=== PATIENT | female | born 1945 | race Caucasian/White ===

== ENCOUNTER 2016-12-13 15:09 | Inpatient (IN) | payer MEDICARE, OTHER ==
[2016-12-13 16:14] LABS: Hematocrit 41 % (35-47); Hemoglobin 13.8 g/dl (12.0-16.0); Mean Corpuscular HGB Conc 34 g/dl (31-36); Mean Corpuscular Hemoglobin 31 pg (27-31); Mean Corpuscular Volume 93 fL (80-97); Mean Platelet Volume 7 um3 (7.4-10.4); Red Blood Count 4.41 10^6/ul (4.0-5.4); Red Cell Distribution Width 13 % (10.5-15); White Blood Count 7.5 10^3/ul (3.5-10.8)
[2016-12-13 16:24] LABS: Albumin 3.8 g/dL (3.2-5.2); BUN/Creatinine Ratio 34.6 (8-20); Calcium 9.3 mg/dL (8.6-10.3); EGFR African American 89.4 (>60); EGFR Non-African American 69.5 (>60); Globulin 3.3 g/dL (2-4); Potassium 3.7 mmol/L (3.5-5.0); Total Bilirubin 0.5 mg/dL (0.2-1.0); Total Protein 7.1 g/dL (6.4-8.9)
[2016-12-13] MEDS ORDERED: NS 0.9% 1000 ML* 1,000 ML IV ONE (16:57)
--- NOTE | 2016-12-13 16:57 | ED ---
Lisa Pratt Rebecca, scribed for Hedy Lopez MD on 12/13/16 at 1627 . GI/ HPI - HPI Summary HPI Summary: Pt is a 71 y/o F who presents to ED c/o 2 incidences of diarrhea with blood today. At both 12 and 1330 today she went to the bathroom and had loose stools with "lots and lots" of dark red (maroon) blood in the BM. Has not had any recurrent sx. No h/o similar. No abdominal pain. No nausea, vomiting. No lightheadedness, no weakness. No cp, sob. No h/o GI bleed. Sx aggravated by nothing, alleviated by Immodium she took after second BM. . Denies dysuria and back pain. Has not seen blood in her underwear. Last normal BM was yesterday. pt with h/o hemorrhoid. No prior similar episodes. Confirms she felt well this morning prior to onset of sx. Last colonoscopy was 2 years ago, which was negative. Pt does have diverticulosis. No h/o diverticulitis. Reports an increase in Motrin usage recently which she does not always take with food. PMHx external hemorrhoids and diverticulosis with negative PMHx of diverticulitis. Confirms chronic bilateral edema. - History of Current Complaint Chief Complaint: EDGIBleed Time Seen by Provider: 12/13/16 16:16 Stated Complaint: BLOOD IN BOWEL MOVEMENTS Hx Obtained From: Patient Onset/Duration: Started Hours Ago, Resolved Timing: Intermittent - 2 episodes Current Severity: None Pain Intensity: 0 - Negative Associated Signs and Symptoms: Positive: Blood w/Stool - Dark red (maroon), Diarrhea. Negative: Nausea, Abdominal Pain, Chest Pain Aggravating Factor(s): Nothing Alleviating Factor(s): Medication - Immodium - Additional Pertinent History Primary Care Physician: [id number] - Allergy/Home Medications Allergies/Adverse Reactions: Allergies Allergy/AdvReac Type Severity Reaction Status Date / Time Buspirone [From Buspar] AdvReac Intermediate possibly Verified 12/13/16 15:13 heart racing Naproxen [From Aleve] AdvReac Intermediate possibly Verified 12/13/16 15:13 nosebleeds Home Medications: Home Medications Ibuprofen-Diphenhydramine Citr [Advil Pm] 2 tab PO BEDTIME 12/13/16 [History Confirmed 12/13/16] PMH/Surg Hx/FS Hx/Imm Hx Previously Healthy: Yes Endocrine/Hematology History: Denies: Hx Anticoagulant Therapy, Hx Diabetes Cardiovascular History: Reports: Hx Hypercholesterolemia, Hx Hypertension, Other Cardiovascular Problems/Disorders - lymphedema Denies: Hx Pacemaker/ICD Respiratory History: Reports: Hx Asthma - hX OF, NO Sx IN MANY YEARS, Hx Sleep Apnea - NO CPAP GI History: Reports: Hx Diverticulosis, Hx Gastroesophageal Reflux Disease - OCCASSIONAL Sx, HAS XANAX Rx History: Denies: Hx Dialysis, Hx Renal Disease Musculoskeletal History: Reports: Hx Arthritis - LEFT KNEE, FEET, BACK Sensory History: Reports: Hx Cataracts, Hx Contacts or Glasses Denies: Hx Hearing Aid Opthamlomology History: Reports: Hx Cataracts, Hx Contacts or Glasses Psychiatric History: Reports: Hx Anxiety - MED PRN, Hx Panic Disorder - TAKES XANAX FOR ANXIETY - Cancer History Cancer Type, Location and Year: emdometrial Hx Chemotherapy: No Hx Radiation Therapy: Yes - ENDOMETRIAL 2012 - Surgical History Surgery Procedure, Year, and Place: HYSTERECTOMY-02/2012; LYMPH NODE DISECTION / lymphadenectomy 05/2012;RIGHT CATARACT-2004. euflexa injections in left knee. D&C X4 Hx Anesthesia Reactions: Yes - 05/2012 CHILLS/N/V Infectious Disease History: No Infectious Disease History: Denies: Traveled Outside the [place] in Last 30 Days - Family History Known Family History: Positive: Other - Lung CA, Breast CA - Social History Occupation: Retired Lives: Alone Alcohol Use: Weekly Alcohol Amount: 2-1 DRINKS/MONTH Substance Use Type: Reports: None Smoking Status (MU): Never Smoked Tobacco Have You Smoked in the Last Year: No Review of Systems Constitutional: Negative Eyes: Negative ENT: Negative Negative: Chest Pain Negative: Shortness Of Breath Positive: Diarrhea - Loose stools. Negative: Abdominal Pain, Nausea Positive: other - 2 BM with blood. Negative: dysuria Positive: Other - Denies back pain Skin: Negative Neurological: Negative Psychological: Normal All Other Systems Reviewed And Are Negative: Yes Physical Exam Triage Information Reviewed: Yes Vital Signs On Initial Exam: Initial Vitals Temp Pulse Resp BP Pulse Ox 98.1 F 112 20 180/99 95 12/13/16 15:14 12/13/16 15:14 12/13/16 15:14 12/13/16 15:14 12/13/16 15:14 Vital Signs Reviewed: Yes Appearance: Positive: Well-Appearing Skin: Positive: Warm, Skin Color Reflects Adequate Perfusion, Dry Eyes: Positive: Normal, EOMI, TAMMI ENT: Positive: Hearing grossly normal, Pharynx normal, TMs normal Neck: Positive: Supple, Nontender, No Lymphadenopathy Respiratory/Lung Sounds: Positive: Clear to Auscultation, Breath Sounds Present , Decreased Breath Sounds Cardiovascular: Positive: Normal, RRR. Negative: Murmur Abdomen Description: Positive: Nontender, No Organomegaly, Soft. Negative: Distended, Guarding Bowel Sounds: Positive: Present Musculoskeletal: Positive: Normal, Strength/ROM Intact Neurological: Positive: Normal, Sensory/Motor Intact, Alert, Oriented to Person Place, Time Psychiatric: Positive: Normal - Manjeet Coma Scale Best Eye Response: 4 - Spontaneous Best Motor Response: 6 - Obeys Commands Best Verbal Response: 5 - Oriented Coma Scale Total: 15 Diagnostics - Vital Signs Vital Signs Temp Pulse Resp BP Pulse Ox 12/13/16 15:14 98.1 F 112 20 180/99 95 - Laboratory Lab Results: Lab Results 12/13/16 12/13/16 12/13/16 Range/Units 15:55 15:55 15:55 WBC 7.5 (3.5-10.8) 10^3/ul RBC 4.41 (4.0-5.4) 10^6/ul Hgb 13.8 (12.0-16.0) g/dl Hct 41 (35-47) % MCV 93 (80-97) fL MCH 31 (27-31) pg MCHC 34 (31-36) g/dl RDW 13 (10.5-15) % Plt Count 215 (150-450) 10^3/ul MPV 7 L (7.4-10.4) um3 Neut % (Auto) 74.0 (38-83) % Lymph % (Auto) 19.0 L (25-47) % Harper % (Auto) 6.2 (1-9) % Eos % (Auto) 0.3 (0-6) % Baso % (Auto) 0.5 (0-2) % Absolute Neuts (auto) 5.6 (1.5-7.7) 10^3/ul Absolute Lymphs (auto) 1.4 (1.0-4.8) 10^3/ul Absolute Monos (auto) 0.5 (0-0.8) 10^3/ul Absolute Eos (auto) 0 (0-0.6) 10^3/ul Absolute Basos (auto) 0 (0-0.2) 10^3/ul Absolute Nucleated RBC 0 10^3/ul Nucleated RBC % 0 INR (Anticoag Therapy) 0.86 L (0.89-1.11) Sodium 137 (133-145) mmol/L Potassium 3.7 (3.5-5.0) mmol/L Chloride 105 (101-111) mmol/L Carbon Dioxide 26 (22-32) mmol/L Anion Gap 6 (2-11) mmol/L BUN 28 H (6-24) mg/dL Creatinine 0.81 (0.51-0.95) mg/dL Est GFR ( Amer) 89.4 (>60) Est GFR (Non-Af Amer) 69.5 (>60) BUN/Creatinine Ratio 34.6 H (8-20) Glucose 121 H (70-100) mg/dL Calcium 9.3 (8.6-10.3) mg/dL Magnesium 2.0 (1.9-2.7) mg/dL Total Bilirubin 0.50 (0.2-1.0) mg/dL AST 17 (13-39) U/L ALT 13 (7-52) U/L Alkaline Phosphatase 61 (34-104) U/L Total Creatine Kinase 57 (10-223) U/L Total Protein 7.1 (6.4-8.9) g/dL Albumin 3.8 (3.2-5.2) g/dL Globulin 3.3 (2-4) g/dL Albumin/Globulin Ratio 1.2 (1-3) Result Diagrams: 12/13/16 15:55 12/13/16 15:55 Lab Statement: Any lab studies that have been ordered have been reviewed, and results considered in the medical decision making process. Re-Evaluation - Re-Evaluation First Eval Re-Evaluation Time: 17:30 Change: Unchanged Comment: Performed rectla exam, revealing bright red blood. spoke with Dr. Alexis (covering Dr. Fine) - request hospitalist admit and will see pt tomorrow. Spoke wt Dr. Burks - agreement with plan. Will give 80mg protonix GIGU Course/Dx - Course Assessment/Plan: Patient's medications reviewed this visit. Pt presents with 2 episode of large BM reported to be dark and bloody. No abd pain. No n.v. No other complaints. Concern for GI bleed. Will place 2 IV. labs. tele. anticipate admission. Pt in agreement with plan - Diagnoses Provider Diagnoses: GI bleed - Physician Notifications Discussed Care Of Patient With: Thierry Alexis Time Discussed With Above Provider: 17:31 Instructed by Provider To: Other - Requests that the hospitalist admit the pt. Discussed care of pt with Dr. Elizabeth Burks at 1733 who accepts pt for admission. Discharge - Discharge Plan Condition: Stable Disposition: ADMITTED TO [facility] documentation as recorded by the Lisa jones Rebecca accurately reflects the service I personally performed and the decisions made by John rivas Laura, MD.
[2016-12-13] MEDS ORDERED: Pantoprazole IV* 80 MG in NS 0.9% 250 ML* 250 ML IVPB ONE (17:30)
[2016-12-13] MEDS ORDERED: Acetaminophen TAB* 325 MG PO PRN (18:04)
[2016-12-13] MEDS ORDERED: Ondansetron INJ* 2 MG/ML VIAL IV PRN (18:04)
[2016-12-13] MEDS ORDERED: Famotidine TAB* 20 MG PO PRN (18:08)
[2016-12-13] MEDS ORDERED: Artificial Tears* 15 ML BTL BOTH EYES PRN (18:08)
[2016-12-13] MEDS ORDERED: ALPRAZolam TAB* 0.5 MG PO PRN (18:08)
[2016-12-13] MEDS ORDERED: NS 0.9% 1000 ML* 1,000 ML IV SCH (18:15)
[2016-12-13 20:42] LABS: Hematocrit 38 % (35-47); Hemoglobin 12.7 g/dl (12.0-16.0)
[2016-12-13] MEDS: ALPRAZolam TAB* 0.5 MG PO PRN (22:19)
[2016-12-13 22:21] LABS: Urine Bacteria Absent (Absent); Urine Bilirubin Negative (Negative); Urine Glucose Negative (Negative); Urine Nitrite Negative (Negative)
[2016-12-14 02:17] LABS: Hematocrit 37 % (35-47); Hemoglobin 12.2 g/dl (12.0-16.0)
--- NOTE | 2016-12-14 03:25 | HP ---
CC: Marguerite Fine MD; Dr. Wesley * HISTORY AND PHYSICAL: DATE OF ADMISSION: 12/13/16 PRIMARY CARE PROVIDER: Marguerite Fine MD. ATTENDING PHYSICIAN WHILE IN THE HOSPITAL: Elizabeth Burks MD * (report dictated by Bg Nguyen NP) CHIEF COMPLAINT: Bright red blood per rectum. HISTORY OF PRESENT ILLNESS: Ms. Lau is a 71-year-old female patient. She has a history of chronic lymphedema, osteoarthritis, endometrial cancer, asthma , which is no longer an issue, hypertension, diverticulosis, CORRY and history of anxiety, coming into the ER today stating that she went to [employer] today with one of her nephews. She was bringing him back to the airport. She was at [employer], she had to use the restroom. She went into the bathroom and noticed that she had a large bloody bowel movement that looked maroon in nature and also filled the toilet bowl up with blood. She brought the kids to the airport. She went home. She had another episode around 1:30. [address]. Rincon who was on-call for the practice and she recommended that the patient come into the ER. There was no complaint of chest pain. No complaint of abdominal pain. No nausea, vomiting. She denied any dysuria. There was no frequency. She says that she felt a little lightheaded after the second bowel movement, but there was no shortness of breath. No fainting and no recent fevers or abdominal discomfort and she has never had this issue before. She does state that she has been taking ibuprofen on a daily basis for the last 6 months as well, but denies any again epigastric pain and denies having any tarry stools or coffee-ground emesis. She came into the ER, was evaluated. She was heme-positive. There was concern for a possible GI bleed, lower and the hospitalist service was asked to evaluate for admission. PAST MEDICAL HISTORY: Significant for : 1. Lymphedema. 2. Osteoarthritis. 3. Endometrial cancer. 4. Asthma. 5. Hypertension. 6. Diverticulosis. 7. CORRY. 8. Anxiety. PAST SURGICAL HISTORY: 1. The patient has had a hysterectomy. 2. D and C x4. 3. Cataracts. 4. Tonsillectomy. MEDICATIONS: The home medications according to the list that she provided us include: 1. Advil PM 2 tablets at bedtime. 2. Singulair 10 mg p.o. daily. 3. Zantac 150 mg p.o. daily as needed. 4. Multivitamin 1 tablet daily. 5. Indapamide 1 tablet p.o. daily. 6. Glucosamine and chondroitin 1 tablet p.o. daily. 7. Lipitor 20 mg daily. 8. Artificial Tears 1 spray both eyes daily as needed. 9. Tylenol Arthritis 2 tablets p.o. b.i.d. as needed. 10. Xanax 1 tablet p.o. b.i.d. as needed. ALLERGIES TO MEDICATIONS: Include NAPROXEN and BUSPAR. FAMILY HISTORY: Her mother had peripheral vascular disease and breast cancer. Father had an OR and was also diabetic. SOCIAL HISTORY: She does not smoke. Rarely drinks alcohol. Surrogate decision maker is her brother and her nephew. REVIEW OF SYSTEMS: There is no documented fever. She denied having any significant weight change. There was no double vision. She denies having any ear discharge. There was no rhinorrhea, no sore throat, no thyroid enlargement. She denied having any chest pain. There was no orthopnea. No nocturnal dyspnea. There was no abdominal pain. There was bright red blood per rectum. No dysuria. No frequency. No seizure. No loss of consciousness. No pruritus. No skin ulcerations. Review of 14 systems completed, all others negative. PHYSICAL EXAMINATION GENERAL: At this time, Ms. Lau is a 71-year-old female patient. She appears to be well nourished and well developed. She does not appear to be in any acute distress. VITAL SIGNS: Blood pressure 132/57, pulse 91, respirations 18, O2 sat 95% on room air, and temperature 98. HEENT: Head is atraumatic and normocephalic. Eyes: EOMs are intact. Sclerae anicteric and not pale. Throat: Oral mucosa appears to be moist, no oropharyngeal erythema. NECK: Supple. LUNGS: Clear to auscultation bilaterally. No wheezes, rales, or rhonchi. HEART: Sounds S1 and S2. Regular rate and rhythm. No murmurs, rubs, or gallops. ABDOMEN: Soft, it was flat and nontender. Bowel sounds present. RECTAL EXAM: Did reveal bright red blood. EXTREMITIES: Pulses were 2+ throughout. She did have lymphedema bilaterally. She is moving all 4 extremities with 5/5 strength. NEUROLOGIC: She is awake, alert and oriented x3. No gross focal deficits. SKIN: Intact. DIAGNOSTIC STUDIES/LAB DATA: Labs revealed a WBC of 7.5, RBC of 4.14, hemoglobin of 13.8, hematocrit of 41, platelet count of 215,000. The INR was 0.86. Sodium 137, potassium 3.7, chloride of 105, bicarb 26, BUN of 28, creatinine 0.81, glucose 121. Calcium of 9.3, mag was 2.0, total bili 0.5. AST 17, ALT 13, alk phos 61, albumin 3.8. The patient did have a Hemoccult which again was noted to be positive. Old medical records were reviewed. ASSESSMENT AND PLAN: Ms. Lau is a 71-year-old female patient coming into the ER today with complaints of bright red blood per rectum. She will be admitted under observation status for: 1. Lower GI bleed. At this point, again I suspect this is probably a diverticular bleed. I did touch base with Dr. Wesley. The plan at this point is to hold off on PPI. I will put her on clear liquid diet, serial H and Hs. If her H and H remains stable, she probably could be discharged in 24 hours. We will hydrate her, which has been done here in the ED. We will check the serial H and H's and we will again transfuse as needed. Two peripheral IVs have been maintained. We will continue to monitor. 2. Lymphedema. She can follow with her primary. 3. Osteoarthritis. Continue with p.r.n. Tylenol. I have instructed her to avoid NSAIDs. 4. Endometrial cancer. Again follow up with primary. Not an active issue. 5. Asthma, not an active issue. 6. Hypertension. In the setting of this bleeding, I am going to hold off on the mild diuretic that she is taking. We can reinstate that when she is out of the acute illness. 7. Anxiety. P.r.n. Xanax will be continued. 8. Obstructive sleep apnea. Follow up with primary. 9. DVT prophylaxis. I will place her on SCDs. 9. Code status: She wishes to be a full code. 10. Fluids, electrolytes, and nutrition: Clear liquid diet. TIME SPENT: Time spent on the admission was approximately 60 minutes, greater than half the time was spent [id number] with the patient obtaining my history and physical, other half time was spent going over the plan of care with the patient and implementing plan of care. I did discuss the plan of care with my attending, Dr. Burks, she is in agreement. BG NGUYEN, TOSHIA [id number]/CPS #: [id number] MTDD
[2016-12-14] MEDS: Atorvastatin* 20 MG TAB PO SCH (07:57)
[2016-12-14 09:12] LABS: Hematocrit 40 % (35-47); Mean Corpuscular HGB Conc 33 g/dl (31-36); Mean Corpuscular Hemoglobin 31 pg (27-31); Mean Corpuscular Volume 94 fL (80-97); Mean Platelet Volume 7 um3 (7.4-10.4); Red Blood Count 4.22 10^6/ul (4.0-5.4); Red Cell Distribution Width 14 % (10.5-15); White Blood Count 6.3 10^3/ul (3.5-10.8)
[2016-12-14 09:26] LABS: BUN/Creatinine Ratio 21.4 (8-20); Calcium 9.1 mg/dL (8.6-10.3); EGFR African American 85.7 (>60); EGFR Non-African American 66.6 (>60); Potassium 3.4 mmol/L (3.5-5.0)
--- NOTE | 2016-12-14 09:39 | PN ---
Subjective - Subjective Reason for Note: Progress Note History: I reviewed the presentation with Abby Lau and with the H and P provided Bg Nguyen NP. She had x 2 episodes of maroon blood in her stool and none since. This was not associated with any nausea, vomiting, syncope, diaphoresis , abdominal pain, diarrhea or recent change in BM. Her father had colon cancer and she has had frequent colonoscopies - most recent 2 years ago. This morning she is feeling well. She has no anorexia, nausea, vomiting, abdo pain. She has had no bowel movements. Active Problems: Active Problems Blood in stool (Acute) K92.1 Asthma (Chronic) J45.909 Family history of colon cancer (Chronic) Z80.0 Hypertension (Chronic) I10 Obesity, Class III, BMI 40-49.9 (morbid obesity) (Chronic) E66.01 Obstructive sleep apnea (Chronic) G47.33 Osteoarthritis (Chronic) M19.90 Current Medications: Current Medications Acetaminophen (Tylenol Tab*) 650 mg PO Q6H PRN PRN Reason: FEVER/PAIN Alprazolam (Xanax Tab*) 0.5 mg PO BID PRN PRN Reason: AGITATION/ANXIETY Last Admin: 12/13/16 22:19 Dose: 0.5 mg Atorvastatin Calcium (Lipitor*) 20 mg PO DAILY [facility] Last Admin: 12/14/16 07:57 Dose: 20 mg Famotidine (Pepcid Tab*) 20 mg PO DAILY PRN; Protocol PRN Reason: INDIGESTION Sodium Chloride (Ns 0.9% 1000 Ml*) 1,000 mls @ 100 mls/hr IV PER RATE [facility] Last Admin: 12/13/16 19:53 Dose: 100 mls/hr Ondansetron HCl (Zofran Inj*) 4 mg IV Q6H PRN PRN Reason: NAUSEA Polyvinyl Alcohol (Polyvinyl Alcohol 1.4% Opth*) 1 drop BOTH EYES DAILY PRN PRN Reason: DRY EYE Home Medications: Home Medications Medication Instructions Recorded Confirmed Type Artificial Tears 1 spray BOTH EYES DAILY PRN 02/17/12 12/13/16 History Indapamide 1 tab PO DAILY 02/17/12 12/13/16 History Multi-Vitamin 1 tab PO DAILY 02/17/12 12/13/16 History Singulair 10 mg PO DAILY 02/17/12 12/13/16 History Xanax 1 tab PO BID PRN 02/17/12 12/13/16 History Acetaminophen [Tylenol Arthritis 2 tab PO BID PRN 03/02/13 12/13/16 History Pain] Obirvheqfsp-Eprknhumasm-Dqwald 1 pow PO DAILY 03/02/13 12/13/16 History [Glucosamine & Chrondroiti] Ranitidine HCl [Zantac 150 Maximum 150 mg PO DAILY PRN 03/02/13 12/13/16 History Streng] Atorvastatin* [Lipitor*] 20 mg PO DAILY 10/18/15 12/13/16 History Ibuprofen-Diphenhydramine Citr 2 tab PO BEDTIME 12/13/16 12/13/16 History [Advil Pm] Allergies: Allergies Allergy/AdvReac Type Severity Reaction Status Date / Time Buspirone [From Buspar] AdvReac Intermediate possibly Verified 12/13/16 15:13 heart racing Naproxen [From Aleve] AdvReac Intermediate possibly Verified 12/13/16 15:13 nosebleeds Objective - Vital Signs Vital Signs: Vital Signs 12/13/16 12/13/16 12/13/16 19:23 20:08 22:19 Temperature 97.6 F 97.6 F Pulse Rate 94 93 Respiratory 16 16 18 Rate Blood Pressure 148/77 148/77 (mmHg) O2 Sat by Pulse 97 97 Oximetry 12/13/16 12/14/16 12/14/16 23:28 00:14 03:57 Temperature 97.7 F 97.7 F Pulse Rate 69 67 Respiratory 16 20 16 Rate Blood Pressure 139/74 131/63 (mmHg) O2 Sat by Pulse 100 97 Oximetry 12/14/16 12/14/16 07:42 08:11 Temperature 97.6 F Pulse Rate 81 Respiratory 16 Rate Blood Pressure 150/80 (mmHg) O2 Sat by Pulse 97 98 Oximetry - Intake and Output Intake and Output: Intake & Output 12/11/16 12/12/16 12/13/16 12/14/16 11:59 11:59 11:59 11:59 Intake Total 2419 Output Total 450 Balance 1969 Weight 251 lb 4.8 oz Intake: IV Fluids 2019 Oral 400 Output: Urine 450 Other: Estimated Void Large # Bowel Movements 0 # Voids 1 Intake and Output Start: 12/13/16 18: 41 Freq: DAILY@0600,1400,2200 Status: Active Document 12/13/16 22:00 [id number] (Rec: 12/13/16 23:01 [id number]) Document 12/14/16 05:37 [id number] (Rec: 12/14/16 05:37 [id number]) - Physical Exam General Physical Exam Comment: Warm and well perfused, in no distress. Hemodynamically stable General: No Cyanosis, No Anemia, No Jaundice, No Clubbing Skin: Normal: Rash Lungs and Chest: Yes: Chest Expansion Full, Chest Expansion Symetrica, Percussion Note Resonant, Vessicular Breath Sounds. No: Crackles, Wheezes Heart Rate and Rhythm: Regular JVP: Not Elevated Additional Cardiovascular: Yes: Normal Heart Sounds, Pedal Edema. No: Heart Murmur Abdominal Exam: Yes: Soft, Hepatomegaly - 2 finger breath, Bowel Sounds Present. No: Distention, Rigidity, Abdominal Mass, Splenomegaly, Abdominal Tenderness, Guarding, Rebound Tenderness, Kidneys Palpable - Extremities Cranial Nerves II-XII Intact: Yes Limbs: Normal Power, Normal Tone - Neuro Orientation: A/O x3 Psychiatric: Normal Speech: Normal Results - Results Lab Results: Laboratory Results - last 24 hr 12/13/16 12/13/16 12/14/16 20:37 21:50 02:14 WBC RBC Hgb 12.7 12.2 Hct 38 37 MCV MCH MCHC RDW Plt Count MPV Neut % (Auto) Lymph % (Auto) Upson % (Auto) Eos % (Auto) Baso % (Auto) Absolute Neuts (auto) Absolute Lymphs (auto) Absolute Monos (auto) Absolute Eos (auto) Absolute Basos (auto) Absolute Nucleated RBC Nucleated RBC % INR (Anticoag Therapy) Sodium Potassium Chloride Carbon Dioxide Anion Gap BUN Creatinine Est GFR ( Amer) Est GFR (Non-Af Amer) BUN/Creatinine Ratio Glucose Calcium Urine Color Yellow Urine Appearance Clear Urine pH 6.0 Ur Specific Kenly 1.009 L Urine Protein Negative Urine Ketones Negative Urine Blood Negative Urine Nitrate Negative Urine Bilirubin Negative Urine Urobilinogen Negative Ur Leukocyte Esterase Trace H Urine WBC (Auto) Trace(0-5/hpf) Urine RBC (Auto) Trace(0-2/hpf) Ur Squamous Epith Cells Present H Urine Bacteria Absent Urine Glucose Negative Urine Ascorbic Acid * H 07/12/14/16 12/14/16 09:00 09:00 09:00 WBC 6.3 RBC 4.22 Hgb 13.0 Hct 40 MCV 94 MCH 31 MCHC 33 RDW 14 Plt Count 199 MPV 7 L Neut % (Auto) 59.5 Lymph % (Auto) 31.4 Upson % (Auto) 6.7 Eos % (Auto) 1.8 Baso % (Auto) 0.6 Absolute Neuts (auto) 3.8 Absolute Lymphs (auto) 2.0 Absolute Monos (auto) 0.4 Absolute Eos (auto) 0.1 Absolute Basos (auto) 0 Absolute Nucleated RBC 0.01 Nucleated RBC % 0.1 INR (Anticoag Therapy) 0.90 Sodium 138 Potassium 3.4 L Chloride 107 Carbon Dioxide 28 Anion Gap 3 BUN 18 Creatinine 0.84 Est GFR ( Amer) 85.7 Est GFR (Non-Af Amer) 66.6 BUN/Creatinine Ratio 21.4 H Glucose 113 H Calcium 9.1 Urine Color Urine Appearance Urine pH Ur Specific Kenly Urine Protein Urine Ketones Urine Blood Urine Nitrate Urine Bilirubin Urine Urobilinogen Ur Leukocyte Esterase Urine WBC (Auto) Urine RBC (Auto) Ur Squamous Epith Cells Urine Bacteria Urine Glucose Urine Ascorbic Acid Assessment - Problem List Assessment: Patient Problems Blood in stool (Acute) Asthma (Chronic) Family history of colon cancer (Chronic) Hypertension (Chronic) Obesity, Class III, BMI 40-49.9 (morbid obesity) (Chronic) Obstructive sleep apnea (Chronic) Osteoarthritis (Chronic) Lymphedema (Chronic) Plan: Blood in stool (Acute) She has positive fecal occult blood. Her H and H is not much altered. I have discussed her case with Dr. Wesley - he is seeing her in consultation this morning. He will decide if she requires a colonoscopy. Otherwise, we are likely to keep her here until tomorrow. She has hypokalemia Asthma (Chronic) secondary diagnosis Family history of colon cancer (Chronic) She is up to date with screening colonoscopies Hypertension (Chronic) mild hypertension this morning Obesity, Class III, BMI 40-49.9 (morbid obesity) (Chronic) secondary diagnosis Obstructive sleep apnea (Chronic) secondary diagnosis Osteoarthritis (Chronic) She takes ibuprofen. She had epistaxis with naproxen. She wonders if this likely exacerbated her current bleed Lymphedema (Chronic) not exacerbated I discussed the above plan with the patient. She is willing to wait another 24 hours before discharge.
[2016-12-14] MEDS ORDERED: CMCS - Melatonin (NF) 3 MG TAB PO PRN (16:40)
[2016-12-14] MEDS: Potassium Chlor TAB* 20 MEQ TAB.ER PO SCH (22:16)
[2016-12-14] MEDS: ALPRAZolam TAB* 0.5 MG PO PRN (22:16)
--- NOTE | 2016-12-14 22:32 | CONS ---
CC: Dr. Marguerite Fine * CONSULTATION REPORT: DATE OF CONSULT: 12/14/16 REQUESTING PHYSICIAN: Bg Nguyen NP PRIMARY CARE PHYSICIAN: Dr. Marguerite Fine INDICATION: Diverticular bleeding. NARRATIVE: Ms. Lau is a very pleasant 71-year-old female well known to myself. I performed a colonoscopy on her approximately 2 years ago. She has severe diverticulosis. That was the third colonoscopy I performed on her. All of her colonoscopies have been polyp free. The patient states that she was feeling well up until mid afternoon yesterday. She felt the urge to have diarrhea, went to the bathroom and had a maroon bloody bowel movement. She felt slightly lightheaded. She then had another bowel movement a few hours later. She came to the emergency room at that point. She was admitted to the hospital for a suspected lower gastrointestinal bleed. Since being in the hospital, she has not had any further bowel movements. She does take nonsteroidals on a regular basis for osteoarthritis, she takes Advil p.m. However, denies any vomiting, nausea, fevers, chills, hematemesis, and feels well at this point. PAST MEDICAL HISTORY: Significant for lymphedema, osteoarthritis, endometrial cancer, hypertension, sleep apnea, and diverticulosis. PAST SURGICAL HISTORY: Includes hysterectomy, D and C x4, cataracts, and tonsillectomy. MEDICATIONS UPON ADMISSION: Include: 1. Singulair. 2. Zantac. 3. Glucosamine. 4. Chondroitin sulfate. 5. Lipitor. 6. Artificial tears. 7. Xanax. ALLERGIES TO MEDICINES: Include NAPROXEN and BUSPAR. FAMILY HISTORY: Mom with peripheral vascular disease, breast cancer, coronary artery disease, diabetes. SOCIAL HISTORY: Denies any tobacco. Rare alcohol. REVIEW OF SYSTEMS: Twelve systems were reviewed, other than that mentioned in the HPI were unremarkable. PHYSICAL EXAM: Vital Signs: Temperature is 97.6, blood pressure is 150/80, pulse is 81. General: Well-appearing female, lying flat in bed. Alert, oriented, pleasant, and fluent. HEENT: Mucous membranes are moist without lesions, ulcers, or exudate. Neck: Supple. Trachea is midline. Head is normocephalic and atraumatic. Sclerae anicteric. Conjunctivae are not pale. Heart: Regular rate and rhythm. No murmurs, rubs, or gallops. Lungs: Clear to auscultation. Abdomen: Positive bowel sounds. Obese, soft, nontender, and nondistended. No hepatosplenomegaly, masses, rebound or guarding. Skin: Warm and dry. Extremities: Severe lower extremity edema bilaterally. DIAGNOSTIC STUDIES/LAB DATA: Of note, white count is 6.3, hemoglobin is 13 up from 12.2. INR is 0.9. Platelets of 199. BUN is 18, creatinine is 0.84. ASSESSMENT AND PLAN: This is a pleasant 71-year-old female with known moderate- to- severe diverticulosis, who presents with painless rectal bleeding. Her hemoglobin is stable. Likely she experienced a diverticular bleed. She seems to be doing well at this point. She is not having bowel movement. Hopefully the bleeding has stopped. We discussed the mechanism behind diverticular bleeding. I would recommend we continue to follow her very closely, repeat her hemoglobins, and I do not believe she needs a colonoscopy at this time. We will follow along closely. [id number]/[facility] #: [id number] [facility]
[2016-12-15 07:26] LABS: Hematocrit 36 % (35-47); Hemoglobin 12.5 g/dl (12.0-16.0); Mean Corpuscular HGB Conc 35 g/dl (31-36); Mean Corpuscular Hemoglobin 32 pg (27-31); Mean Corpuscular Volume 93 fL (80-97); Mean Platelet Volume 7 um3 (7.4-10.4); Red Blood Count 3.87 10^6/ul (4.0-5.4); Red Cell Distribution Width 13 % (10.5-15); White Blood Count 7.7 10^3/ul (3.5-10.8)
[2016-12-15 07:44] LABS: BUN/Creatinine Ratio 21.7 (8-20); Calcium 8.9 mg/dL (8.6-10.3); EGFR African American 77.2 (>60); Potassium 3.4 mmol/L (3.5-5.0)
[2016-12-15] MEDS: Potassium Chlor TAB* 20 MEQ TAB.ER PO SCH (07:56)
[2016-12-15] MEDS: Atorvastatin* 20 MG TAB PO SCH (07:57)
[2016-12-15 08:14] VITALS: BP 135/65
--- NOTE | 2016-12-16 08:56 | DS ---
DISCHARGE SUMMARY: DATE OF ADMISSION: 12/13/16 DATE OF DISCHARGE: 12/15/16 DISCHARGE DIAGNOSES: 1. Gastrointestinal bleeding likely diverticular bleed. 2. Asthma. 3. History of anxiety. 4. Hyperlipidemia. 5. Chronic lymphedema. 6. History of hypertension. 7. History of diverticulosis. 8. Osteoarthritis. 9. History of endometrial cancer. 10. Obstructive sleep apnea. HISTORY: Abby Lau is a 71-year-old woman admitted with lower intestinal bleeding. Please see the dictated admission note for details of the present illness, past medical history, family history, social and personal history, review of systems and physical examination. LABORATORY DATA: CBC on admission: WBC 7.5, H and H 13.8/41, MCV 93, PLT 215K. Subsequent H and H went down to 37 on 12/14/16, then up to 40 later on , and then was 36 on 12/15/16. Coag's, INR 0.86 on 12/13/16, 0.9 on . Chemistries on admission: Sodium 137, potassium 3.7, chloride 105, CO2 26, BUN and creatinine 28/0.81, glucose 121, rest of the comprehensive metabolic panel was within normal limits. Potassium was 3.4 on 12/14/16, 3.4 on . Urinalysis: Yellow, clear, specific gravity 1.009, dip stick is positive for esterase trace. Micro was negative. Consultation GI, on 12/14/16, Dr. Wesley , probably the patient had known moderate- to-severe diverticulosis. He felt she likely experienced a diverticular bleed and was doing well when he saw her on 12/14/16. He did not believe that she needed a colonoscopy at this time. HOSPITAL COURSE: Patient was admitted. She was placed initially on a clear liquid diet, advanced the following day. Her H and H was followed. She was hydrated. Her potassium was repleted. Her diuretic was held. At the time, she had no further bleeding or bowel movements during her hospitalization. She was a full code. She was placed with SCD's for DVT prophylaxis. At the time of discharge she was feeling fine. She denied pain. She had not had a bowel movement since admission. Her vital signs were stable, blood pressure 135/65, pulse 72, respirations 19, temperature 98.3, O2 sat was 95%. Chest was clear. Heart was regular. Abdomen was soft and nontender. Extremities showed her usual lymphedema, no change. Labs were as noted above. Her potassium was noted to be slightly low. This will be followed as an outpatient. She will go back to her usual diet and I suspect that she will bring up her potassium. I will hold off on giving her any diuretic for a couple of days. We will restart it on 12/17/16 which is Thursday. At the time of discharge her diet is regular. Her activity is as usual. MEDICATIONS: 1. Singulair 10 mg daily. 2. Indapamide 2.5 mg daily to start on Thursday12/17/16. 3. Lipitor 20 mg daily. 4. Alprazolam 0.25 mg twice a day as needed for anxiety. 5. Glucosamine sulfate 500 mg 3 times a day. 6. ProAir 2 puffs every 4 hours as needed for asthma. 7. B-Complex once a day. 8. Zantac 150 mg as needed. 9. Multivitamins once daily. 10. Artificial tears as needed. I will see the patient back in one week at which time she should have a CBC, BMP. She was told to take no ibuprofen, Advil, Motrin, Motrin PM, Aleve, naproxen or aspirin. [id number]/[facility] #: [id number] [facility] [place] [facility]
== END 2016-12-15 11:05 | disposition home or self-care (01) | DRG 378 ==
LOC: ED 15:09 → MED 17:34 → OBSVTOIN 12-14 10:00
PROVIDERS: ADMIT Internal Medicine; ATTEND Internal Medicine Geriatric Medicine
DX: K57.31 Diverticulosis of large intestine without perforation or abscess with bleeding (principal); Z68.41 Body mass index [BMI] 40.0-44.9, adult; I10 Essential (primary) hypertension; F41.9 Anxiety disorder, unspecified; E78.5 Hyperlipidemia, unspecified; I89.0 Lymphedema, not elsewhere classified; M19.90 Unspecified osteoarthritis, unspecified site; E66.01 Morbid (severe) obesity due to excess calories; G47.33 Obstructive sleep apnea (adult) (pediatric); Z85.89 Personal history of malignant neoplasm of other organs and systems; Z79.1 Long term (current) use of non-steroidal anti-inflammatories (NSAID); Z79.899 Other long term (current) drug therapy; Z88.8 Allergy status to other drugs, medicaments and biological substances; Z80.3 Family history of malignant neoplasm of breast; Z83.2 Family history of diseases of the blood and blood-forming organs and certain disorders involving the immune mechanism; Z83.3 Family history of diabetes mellitus; Z82.49 Family history of ischemic heart disease and other diseases of the circulatory system
CPT/HCPCS: 36415; 80048; 80053; 81003; 81015; 82272; 82550; 83735; 85014; 85018; 85025; 85610; 86850; 86900; 86901; 87086; 94760; A9270-GY; G0378

== ENCOUNTER 2018-09-07 09:10 | Day surgery (SDC) | payer MEDICARE, OTHER ==
[~2018-09-07 09:10] MED LIST: Buffered Lidocaine 1% SYRIN* 1 ML/SYRINGE INTRADERM ONE
[2018-09-07] MEDS ORDERED: Propofol* 10 MG/ML 20 ML BTL ONE (10:01)
[2018-09-07] MEDS ORDERED: Lidocaine 2% PF * 5 ML VIAL ONE (10:01)
[2018-09-07] MEDS ORDERED: fentaNYL* 50 MCG/ML 2 ML VIAL (100 MCG VIAL) ONE (10:10)
[2018-09-07 10:30] VITALS: BP 149/81
[2018-09-07] MEDS ORDERED: Cyclopentolate 1% OPTH.SOL* 2 ML BTL ONE (15:25)
[2018-09-07] MEDS ORDERED: Phenylephrine OPHTH SOL 2.5%* 2 ML ONE (15:25)
[2018-09-07] MEDS ORDERED: Lidocaine 1%* 5 ML VIAL ONE (15:25)
[2018-09-07] MEDS ORDERED: Neomycin/Polymy/Dex OPHTH.OIN* 3.5 GM ONE (15:25)
[2018-09-07] MEDS ORDERED: Ketorolac 0.5% OPHTH (NF) 0.5 % 5 ML BTL ONE (15:25)
[2018-09-07] MEDS ORDERED: Tropicamide 1% OPTH.SOL* BTL ONE (15:25)
[2018-09-07] MEDS ORDERED: Tetracaine 0.5% OPTH.SOL 4 ML* 1 DROP BTL ONE (15:25)
--- NOTE | 2018-09-07 17:43 | OP ---
DATE OF OPERATION: 09/07/18 [facility] DATE OF : 43 SURGEON: Dr. Luiz Crawford. [employer]: None. ANESTHESIA: Topical with intravenous sedation. PRE-OP DIAGNOSIS: Cataract, left eye. POST-OP DIAGNOSIS: Cataract, left eye. OPERATIVE PROCEDURE: Phacoemulsification and cataract extraction with posterior chamber intraocular lens implant, left eye. COMPLICATIONS: None. BLOOD LOSS: None. DESCRIPTION OF PROCEDURE: The patient was brought to the operating room and received a small amount of intravenous sedation. A drop of tetracaine was placed in her left eye. She was prepped and draped in the usual sterile fashion for ophthalmic surgery and attention was directed to the left eye where a speculum was placed. A paracentesis was created at the 5 o'clock position and 0.1 cc of 1 percent preservative-free Lidocaine was injected into the anterior chamber followed by DisCoVisc. The eye was digitally stabilized while a 2.75 mm keratome was used to create a triplanar clear corneal incision at the 3 o'clock position. A continuous curvilinear capsulorrhexis was created with a cystotome and Utrata forceps. BSS on a cannula was used to hydrodissect the lens from the capsule. Phacoemulsification was performed in a divide-and- conquer technique to create four fragments which were removed. Residual cortical material was removed with irrigation and aspiration. DisCoVisc was used to inflate the capsular bag and an AU00T0 21.5 diopter lens was folded and inserted into the capsular bag. DisCoVisc was removed using irrigation and aspiration. BSS on a cannula was used to hydrate the corneal stroma and seal the wound. At the end of the case the pupil was round and the lens was centered. The eye was of normal pressure and the wound was water tight. The speculum was removed and topical Maxitrol ointment was placed on the surface of the eye. The eye was closed, patched and shielded and the patient was sent to the recovery room in stable condition with post operative instructions and follow-up appointment given. [id number]/[facility] #: [id number] [facility]
== END 2018-09-07 10:44 | disposition home or self-care (01) ==
LOC: OREAST 09:10
PROVIDERS: ATTEND Ophthalmology
DX: H25.12 Age-related nuclear cataract, left eye (principal); J45.909 Unspecified asthma, uncomplicated; F41.9 Anxiety disorder, unspecified; I10 Essential (primary) hypertension; H93.A2 Pulsatile tinnitus, left ear; M85.80 Other specified disorders of bone density and structure, unspecified site; E66.9 Obesity, unspecified; M17.0 Bilateral primary osteoarthritis of knee; Z96.1 Presence of intraocular lens; Z88.8 Allergy status to other drugs, medicaments and biological substances; Z11.1 Encounter for screening for respiratory tuberculosis
CPT/HCPCS: A9270-GY; J2704; J3010; V2632

== ENCOUNTER 2020-11-11 20:37 | Inpatient (IN) ==
[2020-11-11 21:34] LABS: ABS Monocytes 1.2 10^3/ul (0-0.8); ABS Neutrophils 11.7 10^3/ul (1.5-7.7); Eosinophil % 0.1 %; Hematocrit 41 % (35-47); Hemoglobin 14.2 g/dL (12.0-16.0); Lymphocyte % 7.2 %; Mean Corpuscular HGB Conc 34 g/dL (31-36); Mean Corpuscular Hemoglobin 32 pg (27-31); Mean Corpuscular Volume 93 fL (80-97); Mean Platelet Volume 7.7 fL (7.4-10.4); Nucleated Red Blood Cells % 0.1; Platelet Count 180 10^3/uL (150-450); Red Blood Count 4.46 10^6 /uL (3.70-4.87); Red Cell Distribution Width 14 % (10-15); White Blood Count 13.9 10^3/uL (3.5-10.8)
[2020-11-11 21:52] LABS: ALT 35 U/L (7-52); AST 41 U/L (13-39); Albumin 3.6 g/dL (3.2-5.2); Albumin/Globulin Ratio 0.9 (1-3); Alkaline Phosphatase 76 U/L (35-149); Anion Gap 10 mmol/L (2-11); Blood Urea Nitrogen 49 mg/dL (6-24); CO2 Carbon Dioxide 29 mmol/L (22-32); Calcium 10.2 mg/dL (8.6-10.3); Chloride 96 mmol/L (101-111); EGFR African American 56.1 (>60); EGFR Non-African American 46.3 (>60); Globulin 4.1 g/dL (2-4); Glucose 130 mg/dL (70-100); Potassium 2.8 mmol/L (3.5-5.0); Sodium 135 mmol/L (135-145); Total Protein 7.7 g/dL (6.4-8.9)
[2020-11-11 21:56] LABS: Troponin I 0.19 ng/mL (<0.03)
[2020-11-11] MEDS ORDERED: Iodixanol (CONTRAST) 320 MG/ML 100 ML SDV IV ONE (23:34)
[2020-11-12] MEDS ORDERED: Heparin DRIP 25,000 UNITS BAG 25,000 UNITS/500 ML BAG IV SCH (00:45)
[2020-11-12] MEDS ORDERED: Potassium Chlor 20 meq TAB.ER PO ONE ×2 (00:59→09:17)
[2020-11-12] MEDS ORDERED: Heparin 5000 UNITS/ML 1 mL VIAL IV SCH (01:00)
[2020-11-12 01:22] LABS: Magnesium 2.1 mg/dL (1.9-2.7)
[2020-11-12] MEDS: KCL 20 MEQ/100 ML IVPREMIX 20 MEQ/100 ML BAG IV SCH ×2 (01:41→15:27)
[2020-11-12] MEDS ORDERED: Albuterol HFA INHALER 8 gm MDI INH PRN (01:44)
[2020-11-12 02:10] LABS: ABS Basophils 0.1 10^3/ul (0-0.2); ABS Monocytes 1.2 10^3/ul (0-0.8); ABS Neutrophils 13.4 10^3/ul (1.5-7.7); Eosinophil % 0.1 %; Hematocrit 43 % (35-47); Hemoglobin 14.3 g/dL (12.0-16.0); Lymphocyte % 6.5 %; Mean Corpuscular HGB Conc 34 g/dL (31-36); Mean Corpuscular Hemoglobin 31 pg (27-31); Mean Corpuscular Volume 94 fL (80-97); Mean Platelet Volume 7.9 fL (7.4-10.4); Nucleated Red Blood Cells % 0.1; Platelet Count 187 10^3/uL (150-450); Red Blood Count 4.57 10^6 /uL (3.70-4.87); Red Cell Distribution Width 14 % (10-15); White Blood Count 15.6 10^3/uL (3.5-10.8)
[2020-11-12 02:12] LABS: C Reactive Protein 302.01 mg/L (<8.01)
[2020-11-12 02:15] LABS: EGFR Non-African American 52.1 (>60)
[2020-11-12 02:20] LABS: Troponin I 0.13 ng/mL (<0.03)
[2020-11-12] MEDS ORDERED: ceFAZolin 1 GM ADVAN 1 GM in NS 0.9% 50 ML 50 ML IVPB SCH (02:30)
[2020-11-12] MEDS ORDERED: DOXYcycline 100 MG in NS 0.9% 250 ml 250 ML IVPB SCH (03:00)
[2020-11-12] MEDS: ceFAZolin 1 GM ADVAN 1 GM in NS 0.9% 50 ML 50 ML IVPB SCH ×3 (04:51→20:21)
[2020-11-12 05:47] LABS: Troponin I 0.14 ng/mL (<0.03)
[2020-11-12 08:48] LABS: Troponin I 0.11 ng/mL (<0.03)
[2020-11-12] MEDS: Dextran 70/Hypromellose Tears Eye Drops 15 ml BTL (for Artificials Tears) BOTH EYES SCH ×2 (08:58→20:22)
[2020-11-12] MEDS: Timolol 0.25% OPHTH.SOLN BTL RIGHT EYE SCH ×2 (08:59→20:22)
[2020-11-12] MEDS: Vitamin THERAPEUTIC TAB PO SCH (08:59)
[2020-11-12] MEDS: Enoxaparin 100 MG/ML SYR SUBCUT SCH ×2 (09:41→20:21)
[2020-11-12 15:05] LABS: Calcium 9.8 mg/dL (8.6-10.3); EGFR African American 69.2 (>60); EGFR Non-African American 57.2 (>60); Potassium 3.5 mmol/L (3.5-5.0)
[2020-11-13] MEDS: ceFAZolin 1 GM ADVAN 1 GM in NS 0.9% 50 ML 50 ML IVPB SCH ×3 (03:17→20:57)
[2020-11-13 06:21] LABS: Albumin 2.8 g/dL (3.2-5.2); Albumin/Globulin Ratio 0.8 (1-3); C Reactive Protein 245.82 mg/L (<8.01); Calcium 8.7 mg/dL (8.6-10.3); Direct Bilirubin 0.1 mg/dL (0.03-0.18); EGFR African American 89.5 (>60); Globulin 3.3 g/dL (2-4); Indirect Bilirubin 0.4 mg/dL (0.3-1.0); Potassium 3.4 mmol/L (3.5-5.0); Total Bilirubin 0.5 mg/dL (0.2-1.0); Total Protein 6.1 g/dL (6.4-8.9)
[2020-11-13] MEDS: Enoxaparin 100 MG/ML SYR SUBCUT SCH ×2 (08:41→21:03)
[2020-11-13] MEDS: Dextran 70/Hypromellose Tears Eye Drops 15 ml BTL (for Artificials Tears) BOTH EYES SCH ×2 (08:42→21:03)
[2020-11-13] MEDS: Timolol 0.25% OPHTH.SOLN BTL RIGHT EYE SCH ×2 (08:42→21:02)
[2020-11-13] MEDS: Vitamin THERAPEUTIC TAB PO SCH (08:43)
[2020-11-13] MEDS ORDERED: Potassium Chlor 20 meq TAB.ER PO ONE (09:44)
[2020-11-14] MEDS: ceFAZolin 1 GM ADVAN 1 GM in NS 0.9% 50 ML 50 ML IVPB SCH ×3 (03:52→20:22)
[2020-11-14 06:49] LABS: Calcium 8.6 mg/dL (8.6-10.3); Potassium 3.8 mmol/L (3.5-5.0)
[2020-11-14 06:55] LABS: EGFR African American 96.8 (>60)
[2020-11-14 07:10] LABS: ABS Eosinophils 0.1 10^3/ul (0-0.6); ABS Lymphocytes 1.1 10^3/ul (1.0-4.8); ABS Neutrophils 8.7 10^3/ul (1.5-7.7); Eosinophil % 0.6 %; Hematocrit 36 % (35-47); Lymphocyte % 10.3 %; Mean Corpuscular HGB Conc 34 g/dL (31-36); Mean Corpuscular Hemoglobin 32 pg (27-31); Mean Corpuscular Volume 95 fL (80-97); Mean Platelet Volume 8.2 fL (7.4-10.4); Platelet Count 170 10^3/uL (150-450); Red Blood Count 3.81 10^6 /uL (3.70-4.87); Red Cell Distribution Width 14 % (10-15); White Blood Count 10.9 10^3/uL (3.5-10.8)
[2020-11-14] MEDS: Dextran 70/Hypromellose Tears Eye Drops 15 ml BTL (for Artificials Tears) BOTH EYES SCH ×2 (09:20→20:23)
[2020-11-14] MEDS: Timolol 0.25% OPHTH.SOLN BTL RIGHT EYE SCH ×2 (09:20→20:23)
[2020-11-14] MEDS: Enoxaparin 100 MG/ML SYR SUBCUT SCH ×2 (09:20→20:37)
[2020-11-14] MEDS: Vitamin THERAPEUTIC TAB PO SCH (09:31)
[2020-11-15] MEDS: ceFAZolin 1 GM ADVAN 1 GM in NS 0.9% 50 ML 50 ML IVPB SCH (05:24)
[2020-11-15 06:09] LABS: Hematocrit 36 % (35-47); Hemoglobin 12.1 g/dL (12.0-16.0); Mean Corpuscular HGB Conc 34 g/dL (31-36); Mean Corpuscular Hemoglobin 32 pg (27-31); Mean Corpuscular Volume 94 fL (80-97); Mean Platelet Volume 7.3 fL (7.4-10.4); Platelet Count 186 10^3/uL (150-450); Red Blood Count 3.83 10^6 /uL (3.70-4.87); Red Cell Distribution Width 14 % (10-15); White Blood Count 9.9 10^3/uL (3.5-10.8)
[2020-11-15 06:46] LABS: C Reactive Protein 155.29 mg/L (<8.01); Calcium 8.8 mg/dL (8.6-10.3); EGFR African American 96.8 (>60); Potassium 3.7 mmol/L (3.5-5.0)
[2020-11-15] MEDS: Enoxaparin 100 MG/ML SYR SUBCUT SCH ×2 (09:09→22:17)
[2020-11-15] MEDS: Vitamin THERAPEUTIC TAB PO SCH (09:10)
[2020-11-15] MEDS: Dextran 70/Hypromellose Tears Eye Drops 15 ml BTL (for Artificials Tears) BOTH EYES SCH ×2 (09:11→22:20)
[2020-11-15] MEDS: Timolol 0.25% OPHTH.SOLN BTL RIGHT EYE SCH ×2 (09:11→22:19)
[2020-11-15 17:52] LABS: Kappa Free Light Chain 3.82 mg/dL
[2020-11-16 06:36] LABS: INR 1.19 (0.86-1.15)
[2020-11-16] MEDS: Vitamin THERAPEUTIC TAB PO SCH (09:08)
[2020-11-16] MEDS: Enoxaparin 100 MG/ML SYR SUBCUT SCH (09:08)
[2020-11-16] MEDS: Dextran 70/Hypromellose Tears Eye Drops 15 ml BTL (for Artificials Tears) BOTH EYES SCH (09:09)
[2020-11-16] MEDS: Timolol 0.25% OPHTH.SOLN BTL RIGHT EYE SCH (09:09)
[2020-11-16 12:06] VITALS: BP 121/52
[2020-11-16 23:50] LABS: Albumin/Globulin Ratio 0.57; Gamma Globulin 1.1 g/dL (0.6-1.6); Total Protein(PEP) 5.4 g/dL (6.3 - 7.9)
== END 2020-11-16 13:55 | DRG 176 ==
LOC: ED 20:37 → MEDTELE 11-12 03:05
PROVIDERS: ADMIT Internal Medicine; ATTEND Internal Medicine

== ENCOUNTER 2021-07-13 17:16 | Inpatient (IN) ==
[2021-07-13] MEDS ORDERED: Piperacillin/Tazobac ADVAN 3.375 GM in NS 0.9% 100 ml BAG 100 ML IV ONE (18:21)
[2021-07-13] MEDS ORDERED: Vancomycin 1,000 MG in NS 0.9% 250 ml 250 ML IVPB ONE (18:22)
[2021-07-13 19:24] LABS: ABS Eosinophils 0.1 10^3/ul (0-0.6); ABS Lymphocytes 0.8 10^3/ul (1.0-4.8); ABS Monocytes 0.4 10^3/ul (0-0.8); ABS Neutrophils 9.8 10^3/ul (1.5-7.7); Eosinophil % 0.6 %; Hematocrit 36 % (35-47); Hemoglobin 11.8 g/dL (12.0-16.0); Lymphocyte % 7.1 %; Mean Corpuscular HGB Conc 33 g/dL (31-36); Mean Corpuscular Hemoglobin 30 pg (27-31); Mean Corpuscular Volume 92 fL (80-97); Mean Platelet Volume 7.1 fL (7.4-10.4); Platelet Count 233 10^3/uL (150-450); Red Blood Count 3.95 10^6 /uL (3.70-4.87); Red Cell Distribution Width 15 % (10-15); White Blood Count 11.1 10^3/uL (3.5-10.8)
[2021-07-13 19:33] LABS: INR 1.24 (0.86-1.15)
[2021-07-13 19:41] LABS: ALT 12 U/L (7-52); AST 18 U/L (13-39); Albumin 3.7 g/dL (3.2-5.2); Albumin/Globulin Ratio 0.9 (1-3); Alkaline Phosphatase 65 U/L (35-149); Anion Gap 9 mmol/L (2-11); Blood Urea Nitrogen 26 mg/dL (6-24); C Reactive Protein 270.99 mg/L (<8.01); CO2 Carbon Dioxide 28 mmol/L (22-32); Calcium 10.1 mg/dL (8.6-10.3); Chloride 99 mmol/L (101-111); Glucose 112 mg/dL (70-100); Sodium 136 mmol/L (135-145); Total Protein 7.7 g/dL (6.4-8.9); eGFR CKD-EPI 61.3 (>60)
[2021-07-13] MEDS ORDERED: Iohexol 300 (CONTRAST) 10 ML SDV IV ONE (19:44)
[2021-07-13 19:47] LABS: Troponin I 0.03 ng/mL (<0.03)
[2021-07-13 22:16] LABS: Erythrocyte Sed Rate 120 mm/Hr (0-29)
[2021-07-13] MEDS ORDERED: Potassium Chlor 10 meq TAB PO ONE (22:43)
[2021-07-13] MEDS ORDERED: Vancomycin per Pharmacy 1 EA NOTE FOLLOW UP SCH (23:00)
[2021-07-13] MEDS ORDERED: Vancomycin 1,000 MG - ED ONCE IVPB ONE (23:15)
[2021-07-14] MEDS ORDERED: Cefepime 2 GM IV - ED ONCE IV ONE (01:30)
[2021-07-14] MEDS ORDERED: Ondansetron 4 mg VIAL 2 MG/ML 2 ml VIAL IV PRN (01:31)
[2021-07-14] MEDS ORDERED: Al Hydrox/Mg Hydrox/Simet LIQ 30 ML UDC PO PRN (01:31)
[2021-07-14 06:42] LABS: ABS Eosinophils 0.1 10^3/ul (0-0.6); ABS Lymphocytes 0.7 10^3/ul (1.0-4.8); ABS Monocytes 0.6 10^3/ul (0-0.8); ABS Neutrophils 8.5 10^3/ul (1.5-7.7); Eosinophil % 0.7 %; Hematocrit 34 % (35-47); Hemoglobin 11.3 g/dL (12.0-16.0); Lymphocyte % 7.4 %; Mean Corpuscular HGB Conc 33 g/dL (31-36); Mean Corpuscular Hemoglobin 31 pg (27-31); Mean Corpuscular Volume 92 fL (80-97); Platelet Count 220 10^3/uL (150-450); Red Blood Count 3.73 10^6 /uL (3.70-4.87); Red Cell Distribution Width 15 % (10-15)
[2021-07-14 07:00] LABS: Troponin I 0.01 ng/mL (<0.03)
[2021-07-14 07:02] LABS: Calcium 9.3 mg/dL (8.6-10.3); Potassium 3.4 mmol/L (3.5-5.0)
[2021-07-14] MEDS: GLUCOSAMINE HCL MSM CHONDROITN PO SCH ×2 (11:13→20:30)
[2021-07-14 11:23] LABS: Magnesium 1.7 mg/dL (1.9-2.7)
[2021-07-14] MEDS ORDERED: Potassium Chlor 20 meq TAB.ER PO ONE (11:30)
[2021-07-14] MEDS ORDERED: cefTRIAXone 1 gm/50 mL NS BAG 1 GM/50 ML BAG IVPB SCH (13:00)
[2021-07-14] MEDS ORDERED: Cefepime 2 GM in Dextrose 2 GM/50 ML BAG IV SCH (13:30)
[2021-07-14] MEDS ORDERED: Vancomycin 1,500 MG in NS 0.9% 250 ml 250 ML IVPB SCH (15:00)
[2021-07-14] MEDS ORDERED: Magnesium Sulfate 2 gm BAG 2 GM/50 ML BAG IVPB ONE (16:09)
[2021-07-15 06:38] LABS: C Reactive Protein 151.22 mg/L (<8.01); Calcium 9.2 mg/dL (8.6-10.3); Potassium 3.7 mmol/L (3.5-5.0); eGFR CKD-EPI 60.6 (>60)
[2021-07-15] MEDS ORDERED: Flu vaccine *QUAD* 2021-22* 0.5 ML SYRINGE IM ONE (09:00)
[2021-07-15] MEDS: GLUCOSAMINE HCL MSM CHONDROITN PO SCH ×2 (10:08→20:45)
[2021-07-15] MEDS: cefTRIAXone 2 GM ADDV.VIAL 2 GM in NS 0.9% 100 ml BAG 100 ML IV SCH (14:41)
[2021-07-15] MEDS ORDERED: COVID-19 VACCINE, MRNA(MODERNA) BOOSTER/PF 50 MCG/0.25 ML IM ONE (18:25)
[2021-07-16] MEDS: GLUCOSAMINE HCL MSM CHONDROITN PO SCH (08:47)
[2021-07-16 11:26] VITALS: BP 132/78
[2021-07-16] MEDS: cefTRIAXone 2 GM ADDV.VIAL 2 GM in NS 0.9% 100 ml BAG 100 ML IV SCH (12:30)
[2021-07-16] MEDS ORDERED: Vancomycin Trough Check NOTE FOLLOW UP ONE (14:30)
== END 2021-07-16 16:50 | disposition home or self-care (01) | DRG 603 ==
LOC: ED 17:16 → SUATTDRO 07-14 01:32 → EDHOLD 07-14 01:32 → SSU 07-14 06:15
PROVIDERS: ADMIT Hospitalist; ATTEND Student in an Organized Health Care Education/Training Program

== ENCOUNTER 2021-08-19 12:25 | Inpatient (IN) ==
[2021-08-19 15:27] LABS: ABS Lymphocytes 0.7 10^3/ul (1.0-4.8); ABS Monocytes 0.4 10^3/ul (0-0.8); ABS Neutrophils 8.9 10^3/ul (1.5-7.7); Eosinophil % 0.4 %; Hematocrit 35 % (35-47); Hemoglobin 11.7 g/dL (12.0-16.0); Lymphocyte % 6.9 %; Mean Corpuscular HGB Conc 34 g/dL (31-36); Mean Corpuscular Hemoglobin 31 pg (27-31); Mean Corpuscular Volume 92 fL (80-97); Platelet Count 293 10^3/uL (150-450); Red Blood Count 3.77 10^6 /uL (3.70-4.87); Red Cell Distribution Width 15 % (10-15); White Blood Count 10.1 10^3/uL (3.5-10.8)
[2021-08-19 15:35] LABS: Urine Appearance Cloudy; Urine Bilirubin Negative (Negative); Urine Blood Negative (Negative); Urine Color Yellow; Urine Glucose Negative (Negative); Urine Ketones Negative (Negative); Urine Nitrite Negative (Negative); Urine Protein Negative (Negative); Urine Specific Gravity 1.011 (1.002-1.030); Urine Urobilinogen Negative (Negative)
[2021-08-19 15:54] LABS: Albumin 3.5 g/dL (3.2-5.2); Albumin/Globulin Ratio 1.1 (1-3); C Reactive Protein 124.27 mg/L (<8.01); Calcium 9.8 mg/dL (8.6-10.3); Globulin 3.3 g/dL (2-4); Potassium 3.8 mmol/L (3.5-5.0); Total Bilirubin 0.6 mg/dL (0.2-1.0); Total Protein 6.8 g/dL (6.4-8.9)
[2021-08-19] MEDS ORDERED: cefTRIAXone 1 gm/50 mL D5W 1 GM/50 ML BAG IV ONE (16:55)
[2021-08-19] MEDS ORDERED: Enoxaparin 40 MG/0.4 ML SYR SUBCUT SCH (17:00)
[2021-08-19] MEDS ORDERED: Ondansetron 4 mg VIAL 2 MG/ML 2 ml VIAL IV PRN (17:00)
[2021-08-19] MEDS ORDERED: Furosemide 40 mg/4 ml IV VIAL IV SLOW PU ONE (17:08)
[2021-08-19] MEDS ORDERED: Piperacillin/Tazobac ADVAN 3.375 GM in NS 0.9% 100 ml BAG 100 ML IV ONE (17:42)
[2021-08-19] MEDS ORDERED: Zosyn per Pharmacy NOTE FOLLOW UP SCH (18:00)
[2021-08-19 20:03] LABS: Erythrocyte Sed Rate 120 mm/Hr (0-29)
[2021-08-19] MEDS: Enoxaparin 100 MG/ML SYR SUBCUT SCH (22:59)
[2021-08-19] MEDS: ZOSYN 3.375 GM Q8H per EXTENDED INFUSION IV SCH (23:01)
[2021-08-20] MEDS: ZOSYN 3.375 GM Q8H per EXTENDED INFUSION IV SCH ×3 (06:33→22:16)
[2021-08-20 06:38] LABS: ABS Eosinophils 0.1 10^3/ul (0-0.6); ABS Lymphocytes 0.6 10^3/ul (1.0-4.8); ABS Monocytes 0.6 10^3/ul (0-0.8); ABS Neutrophils 6.2 10^3/ul (1.5-7.7); Eosinophil % 1.2 %; Hematocrit 33 % (35-47); Hemoglobin 11.1 g/dL (12.0-16.0); Lymphocyte % 7.7 %; Mean Corpuscular HGB Conc 33 g/dL (31-36); Mean Corpuscular Hemoglobin 31 pg (27-31); Mean Corpuscular Volume 93 fL (80-97); Mean Platelet Volume 7.1 fL (7.4-10.4); Platelet Count 284 10^3/uL (150-450); Red Blood Count 3.57 10^6 /uL (3.70-4.87); Red Cell Distribution Width 15 % (10-15); White Blood Count 7.4 10^3/uL (3.5-10.8)
[2021-08-20 07:10] LABS: C Reactive Protein 123.98 mg/L (<8.01); Calcium 9.3 mg/dL (8.6-10.3); Potassium 3.6 mmol/L (3.5-5.0); eGFR CKD-EPI 55.1 (>60)
[2021-08-20] MEDS: Enoxaparin 100 MG/ML SYR SUBCUT SCH ×2 (10:14→22:16)
[2021-08-20] MEDS: BIFIDOBACTERIUM INFANTIS 4 MG PO SCH (11:59)
[2021-08-20] MEDS ORDERED: cefTRIAXone 1 gm/50 mL D5W 1 GM/50 ML BAG IV SCH (17:00)
[2021-08-21 05:50] LABS: ABS Eosinophils 0.1 10^3/ul (0-0.6); ABS Lymphocytes 0.7 10^3/ul (1.0-4.8); ABS Monocytes 0.5 10^3/ul (0-0.8); ABS Neutrophils 4.2 10^3/ul (1.5-7.7); Eosinophil % 2.3 %; Hematocrit 32 % (35-47); Hemoglobin 10.7 g/dL (12.0-16.0); Lymphocyte % 12.7 %; Mean Corpuscular HGB Conc 33 g/dL (31-36); Mean Corpuscular Hemoglobin 31 pg (27-31); Mean Corpuscular Volume 93 fL (80-97); Mean Platelet Volume 6.9 fL (7.4-10.4); Platelet Count 289 10^3/uL (150-450); Red Blood Count 3.45 10^6 /uL (3.70-4.87); Red Cell Distribution Width 15 % (10-15); White Blood Count 5.6 10^3/uL (3.5-10.8)
[2021-08-21] MEDS: ZOSYN 3.375 GM Q8H per EXTENDED INFUSION IV SCH ×3 (06:10→22:24)
[2021-08-21 06:29] LABS: Calcium 9.3 mg/dL (8.6-10.3); Potassium 4.2 mmol/L (3.5-5.0)
[2021-08-21] MEDS: BIFIDOBACTERIUM INFANTIS 4 MG PO SCH (09:26)
[2021-08-21] MEDS: Enoxaparin 100 MG/ML SYR SUBCUT SCH ×2 (09:27→22:24)
[2021-08-21] MEDS ORDERED: Ammonium Lactate 12% 1 APPLIC TUBE TOPICAL SCH (11:00)
[2021-08-21] MEDS ORDERED: Collagenase 250 units/gm OINT 1 tube TOPICAL SCH (11:00)
[2021-08-22] MEDS: ZOSYN 3.375 GM Q8H per EXTENDED INFUSION IV SCH (06:22)
[2021-08-22] MEDS: BIFIDOBACTERIUM INFANTIS 4 MG PO SCH (07:32)
[2021-08-22] MEDS: Ammonium Lactate 12% 1 APPLIC TUBE TOPICAL SCH ×2 (10:47→13:04)
[2021-08-22] MEDS: Collagenase 250 units/gm OINT 1 tube TOPICAL SCH ×2 (10:47→13:04)
[2021-08-22] MEDS: Enoxaparin 100 MG/ML SYR SUBCUT SCH ×2 (10:48→23:07)
[2021-08-22] MEDS: Multivitamins/Minerals TAB PO SCH (10:48)
[2021-08-22] MEDS: cefTRIAXone 1 gm/50 mL D5W 1 GM/50 ML BAG IV SCH (15:53)
[2021-08-22] MEDS: GLUCOSAMINE PO SCH (23:07)
[2021-08-22] MEDS: CHONDROITIN PO SCH (23:07)
[2021-08-22] MEDS: METHYLSULFONYLMETHANE PO SCH (23:07)
[2021-08-23 05:19] LABS: ABS Eosinophils 0.1 10^3/ul (0-0.6); ABS Lymphocytes 1.1 10^3/ul (1.0-4.8); ABS Monocytes 0.4 10^3/ul (0-0.8); ABS Neutrophils 3.2 10^3/ul (1.5-7.7); Eosinophil % 1.7 %; Hematocrit 32 % (35-47); Hemoglobin 10.7 g/dL (12.0-16.0); Mean Corpuscular HGB Conc 33 g/dL (31-36); Mean Corpuscular Hemoglobin 31 pg (27-31); Mean Corpuscular Volume 92 fL (80-97); Mean Platelet Volume 7.2 fL (7.4-10.4); Platelet Count 276 10^3/uL (150-450); Red Blood Count 3.49 10^6 /uL (3.70-4.87); Red Cell Distribution Width 15 % (10-15); White Blood Count 4.8 10^3/uL (3.5-10.8)
[2021-08-23 05:34] LABS: Calcium 8.8 mg/dL (8.6-10.3); Potassium 3.7 mmol/L (3.5-5.0)
[2021-08-23] MEDS: BIFIDOBACTERIUM INFANTIS 4 MG PO SCH (08:01)
[2021-08-23] MEDS: Multivitamins/Minerals TAB PO SCH (08:01)
[2021-08-23] MEDS: METHYLSULFONYLMETHANE PO SCH ×2 (08:02→19:50)
[2021-08-23] MEDS: GLUCOSAMINE PO SCH ×2 (08:02→19:50)
[2021-08-23] MEDS: CHONDROITIN PO SCH ×2 (08:02→19:50)
[2021-08-23] MEDS: Enoxaparin 100 MG/ML SYR SUBCUT SCH (11:29)
[2021-08-23] MEDS: Ammonium Lactate 12% 1 APPLIC TUBE TOPICAL SCH (13:41)
[2021-08-23] MEDS: Collagenase 250 units/gm OINT 1 tube TOPICAL SCH (13:41)
[2021-08-23] MEDS: cefTRIAXone 1 gm/50 mL D5W 1 GM/50 ML BAG IV SCH (14:36)
[2021-08-23] MEDS ORDERED: Warfarin DAILY REMINDER **NOTE FOLLOW UP SCH (17:00)
[2021-08-24 07:49] LABS: Hematocrit 32 % (35-47); Hemoglobin 10.8 g/dL (12.0-16.0); Mean Corpuscular HGB Conc 34 g/dL (31-36); Mean Corpuscular Hemoglobin 31 pg (27-31); Mean Corpuscular Volume 93 fL (80-97); Platelet Count 269 10^3/uL (150-450); Red Blood Count 3.46 10^6 /uL (3.70-4.87); Red Cell Distribution Width 15 % (10-15); White Blood Count 4.2 10^3/uL (3.5-10.8)
[2021-08-24] MEDS: Multivitamins/Minerals TAB PO SCH (07:59)
[2021-08-24] MEDS: METHYLSULFONYLMETHANE PO SCH ×2 (08:05→21:58)
[2021-08-24] MEDS: GLUCOSAMINE PO SCH ×2 (08:05→21:58)
[2021-08-24] MEDS: CHONDROITIN PO SCH ×2 (08:05→21:58)
[2021-08-24 08:06] LABS: eGFR CKD-EPI 78.7 (>60)
[2021-08-24] MEDS: BIFIDOBACTERIUM INFANTIS 4 MG PO SCH (10:46)
[2021-08-24] MEDS: Ammonium Lactate 12% 1 APPLIC TUBE TOPICAL SCH (13:59)
[2021-08-24] MEDS: Collagenase 250 units/gm OINT 1 tube TOPICAL SCH (13:59)
[2021-08-24] MEDS: cefTRIAXone 1 gm/50 mL D5W 1 GM/50 ML BAG IV SCH (14:56)
[2021-08-24] MEDS: ceFAZolin 2 GM in NS PREMIX 2 GM/100 ML BAG IVPB SCH (19:06)
[2021-08-25] MEDS: ceFAZolin 2 GM in NS PREMIX 2 GM/100 ML BAG IVPB SCH (02:10)
[2021-08-25] MEDS: Multivitamins/Minerals TAB PO SCH (08:39)
[2021-08-25] MEDS: BIFIDOBACTERIUM INFANTIS 4 MG PO SCH (10:15)
[2021-08-25] MEDS: ceFAZolin 2 GM PREMIX 2 GM/50 ML BAG IV SCH ×2 (10:16→17:51)
[2021-08-25] MEDS: METHYLSULFONYLMETHANE PO SCH ×2 (11:33→20:15)
[2021-08-25] MEDS: GLUCOSAMINE PO SCH ×2 (11:33→20:15)
[2021-08-25] MEDS: CHONDROITIN PO SCH ×2 (11:33→20:15)
[2021-08-25] MEDS: Ammonium Lactate 12% 1 APPLIC TUBE TOPICAL SCH (15:02)
[2021-08-25] MEDS: Collagenase 250 units/gm OINT 1 tube TOPICAL SCH (15:02)
[2021-08-26] MEDS: ceFAZolin 2 GM PREMIX 2 GM/50 ML BAG IV SCH ×2 (01:52→10:57)
[2021-08-26 05:15] LABS: ABS Eosinophils 0.1 10^3/ul (0-0.6); ABS Lymphocytes 1.1 10^3/ul (1.0-4.8); ABS Monocytes 0.4 10^3/ul (0-0.8); ABS Neutrophils 2.8 10^3/ul (1.5-7.7); Eosinophil % 2.6 %; Hematocrit 34 % (35-47); Hemoglobin 11.4 g/dL (12.0-16.0); Lymphocyte % 25.3 %; Mean Corpuscular HGB Conc 33 g/dL (31-36); Mean Corpuscular Hemoglobin 31 pg (27-31); Mean Corpuscular Volume 93 fL (80-97); Mean Platelet Volume 6.9 fL (7.4-10.4); Platelet Count 256 10^3/uL (150-450); Red Blood Count 3.65 10^6 /uL (3.70-4.87); Red Cell Distribution Width 15 % (10-15); White Blood Count 4.4 10^3/uL (3.5-10.8)
[2021-08-26 05:27] LABS: Calcium 8.9 mg/dL (8.6-10.3); Potassium 3.9 mmol/L (3.5-5.0); eGFR CKD-EPI 62.1 (>60)
[2021-08-26] MEDS: Multivitamins/Minerals TAB PO SCH (08:33)
[2021-08-26] MEDS: METHYLSULFONYLMETHANE PO SCH (08:39)
[2021-08-26] MEDS: GLUCOSAMINE PO SCH (08:39)
[2021-08-26] MEDS: CHONDROITIN PO SCH (08:39)
[2021-08-26] MEDS: BIFIDOBACTERIUM INFANTIS 4 MG PO SCH (08:39)
[2021-08-26 11:18] VITALS: BP 124/58
== END 2021-08-26 14:30 | disposition home or self-care (01) | DRG 603 ==
LOC: ED 12:25 → EDHOLD 12:25 → SUATTDRO 16:51 → MED 19:06 → SUATTDRO 08-21 12:00
PROVIDERS: ADMIT Physician Assistant; ATTEND Internal Medicine

== ENCOUNTER 2021-10-11 11:26 | Observation (INO) ==
[2021-10-11 12:37] LABS: ABS Lymphocytes 0.8 10^3/ul (1.0-4.8); ABS Monocytes 0.6 10^3/ul (0-0.8); ABS Neutrophils 8.1 10^3/ul (1.5-7.7); Eosinophil % 0.1 %; Hematocrit 37 % (35-47); Hemoglobin 12.1 g/dL (12.0-16.0); Mean Corpuscular HGB Conc 33 g/dL (31-36); Mean Corpuscular Hemoglobin 30 pg (27-31); Mean Corpuscular Volume 92 fL (80-97); Mean Platelet Volume 6.5 fL (7.4-10.4); Nucleated Red Blood Cells % 0.2; Platelet Count 233 10^3/uL (150-450); Red Blood Count 4.02 10^6 /uL (3.70-4.87); Red Cell Distribution Width 15 % (10-15); White Blood Count 9.5 10^3/uL (3.5-10.8)
[2021-10-11 13:19] LABS: Albumin 3.4 g/dL (3.2-5.2); Calcium 9.4 mg/dL (8.6-10.3); Globulin 3.5 g/dL (2-4); Potassium 3.4 mmol/L (3.5-5.0); Total Bilirubin 0.4 mg/dL (0.2-1.0); Total Protein 6.9 g/dL (6.4-8.9); eGFR CKD-EPI 68.6 (>60)
[2021-10-11 14:16] LABS: C Reactive Protein 38.51 mg/L (<8.01)
[2021-10-11] MEDS ORDERED: Piperacillin/Tazobac ADVAN 3.375 GM in NS 0.9% 100 ml BAG 100 ML IV ONE (15:12)
[2021-10-11] MEDS ORDERED: Zosyn per Pharmacy NOTE FOLLOW UP SCH (16:00)
[2021-10-11] MEDS ORDERED: Lactated Ringers 1000 ml BAG 1,000 ML IV SCH (16:00)
[2021-10-11] MEDS ORDERED: Lactated Ringers 500 ml BAG 500 ML IV ONE (16:19)
[2021-10-11] MEDS: ZOSYN 3.375 GM Q8H per EXTENDED INFUSION IV SCH (21:49)
[2021-10-11] MEDS: Carboxymethylcellulose/Glyceri 10 ML OPHTH.GEL lubricant eye gel BOTH EYES SCH (23:58)
[2021-10-12] MEDS: ZOSYN 3.375 GM Q8H per EXTENDED INFUSION IV SCH ×3 (05:04→21:14)
[2021-10-12 05:11] LABS: Hematocrit 32 % (35-47); Hemoglobin 10.7 g/dL (12.0-16.0); Mean Corpuscular HGB Conc 34 g/dL (31-36); Mean Corpuscular Hemoglobin 31 pg (27-31); Mean Corpuscular Volume 93 fL (80-97); Mean Platelet Volume 6.6 fL (7.4-10.4); Platelet Count 207 10^3/uL (150-450); Red Cell Distribution Width 14 % (10-15)
[2021-10-12 06:27] LABS: Calcium 8.6 mg/dL (8.6-10.3); Magnesium 1.6 mg/dL (1.9-2.7); Potassium 3.5 mmol/L (3.5-5.0); eGFR CKD-EPI 78.2 (>60)
[2021-10-12] MEDS ORDERED: Magnesium Sulf 4 GM/100 ML IV 4,000 MG/100 ML BAG IVPB ONE (07:12)
[2021-10-12] MEDS: Carboxymethylcellulose/Glyceri 10 ML OPHTH.GEL lubricant eye gel BOTH EYES SCH (21:13)
[2021-10-13] MEDS: ZOSYN 3.375 GM Q8H per EXTENDED INFUSION IV SCH (05:05)
[2021-10-13 06:11] LABS: Hematocrit 32 % (35-47); Hemoglobin 10.7 g/dL (12.0-16.0); Mean Corpuscular HGB Conc 34 g/dL (31-36); Mean Corpuscular Hemoglobin 31 pg (27-31); Mean Corpuscular Volume 93 fL (80-97); Mean Platelet Volume 6.7 fL (7.4-10.4); Platelet Count 212 10^3/uL (150-450); Red Blood Count 3.43 10^6 /uL (3.70-4.87); Red Cell Distribution Width 15 % (10-15); White Blood Count 5.8 10^3/uL (3.5-10.8)
[2021-10-13 06:59] LABS: Calcium 8.7 mg/dL (8.6-10.3); Magnesium 2.1 mg/dL (1.9-2.7); Potassium 3.7 mmol/L (3.5-5.0); eGFR CKD-EPI 74.7 (>60)
[2021-10-13] MEDS: Carboxymethylcellulose/Glyceri 10 ML OPHTH.GEL lubricant eye gel BOTH EYES SCH (20:31)
[2021-10-14] MEDS: Carboxymethylcellulose/Glyceri 10 ML OPHTH.GEL lubricant eye gel BOTH EYES SCH ×2 (21:41)
[2021-10-15 12:45] VITALS: BP 135/78
== END 2021-10-15 14:50 | disposition home or self-care (01) ==
LOC: EDHOLD 11:26 → ED 11:26 → SUATTDRO 15:08 → MED 20:40
PROVIDERS: ADMIT Internal Medicine; ATTEND Internal Medicine

== ENCOUNTER 2022-09-19 09:38 | Inpatient (IN) ==
[2022-09-19 11:45] LABS: ABS Lymphocytes 1.2 10^3/uL (1.0-4.8); ABS Monocytes 0.7 10^3/uL (0.0-0.9); ABS Neutrophils 10.3 10^3/uL (1.5-7.6); Eosinophil % 0.2 %; Hematocrit 40.4 % (35-45); Hemoglobin 13.6 g/dL (11.5-14.3); Lymphocyte % 9.6 %; Mean Corpuscular Hemoglobin 30.5 pg (27-33); Mean Corpuscular Hgb Conc 33.6 g/dL (31-36); Mean Corpuscular Volume 90.9 fL (80-97); Mean Platelet Volume 7.1 fL (7.5-11.2); Platelet Count 247 10^3/uL (150-450); Red Blood Count 4.44 10^6/uL (3.63-4.92); Red Cell Distribution Width 13.6 % (12-17); White Blood Count 12.2 10^3/uL (3.8-11.8)
[2022-09-19 12:04] LABS: ALT 18 U/L (7-52); Albumin 3.7 g/dL (3.2-5.2); Alkaline Phosphatase 59 U/L (35-149); Blood Urea Nitrogen 26 mg/dL (6-24); C Reactive Protein 127.63 mg/L (<8.01); CO2 Carbon Dioxide 27 mmol/L (22-32); Calcium 9.8 mg/dL (8.6-10.3); Chloride 101 mmol/L (101-111); Creatine Kinase 737 U/L (10-223); Creatinine, Serum 0.84 mg/dL (0.51-0.95); Globulin 3.7 g/dL (2-4); Glucose 124 mg/dL (70-100); Sodium 135 mmol/L (135-145); Total Protein 7.4 g/dL (6.4-8.9); eGFR CKD-EPI 71.5 (>60)
[2022-09-19 12:06] LABS: Anion Gap 7 mmol/L (2-16)
[2022-09-19 12:07] LABS: High Sens Troponin Baseline 13 pg/mL (<15)
[2022-09-19 12:13] LABS: Activated Partial Thrombo Time 25.8 seconds (26.0-38.0); INR 1.24 (0.88-1.18)
[2022-09-19] MEDS ORDERED: ceFAZolin 1 GM ADVAN 1 GM in NS 0.9% 50 ML 50 ML IVPB ONE (12:21)
[2022-09-19] MEDS ORDERED: Iohexol 350 (CONTRAST) 500 ML MDV IV ONE (12:42)
[2022-09-19 13:41] LABS: High Sensitivity Troponin 1 Hr 14 pg/mL (<15)
[2022-09-19 14:26] LABS: Potassium Redraw 3.7 mmol/L (3.5-5.0)
[2022-09-19] MEDS ORDERED: Piperacillin/Tazobac ADVAN 3.375 GM in NS 0.9% 100 ml BAG 100 ML IV ONE (15:59)
[2022-09-19] MEDS ORDERED: Zosyn per Pharmacy NOTE FOLLOW UP SCH (16:00)
[2022-09-19] MEDS ORDERED: ZOSYN 3.375 GM Q8H per EXTENDED INFUSION IV SCH (20:30)
[2022-09-19] MEDS: ZOSYN 3.375 GM Q8H per EXTENDED INFUSION IV SCH (21:44)
[2022-09-19] MEDS: Timolol 0.5% OPTH.SOL BTL BOTH EYES SCH (21:45)
[2022-09-20 00:35] LABS: Urine Appearance Cloudy; Urine Bilirubin Negative (Negative); Urine Blood Negative (Negative); Urine Color Yellow; Urine Glucose Negative (Negative); Urine Ketones Negative (Negative); Urine Nitrite Positive (Negative); Urine Protein Negative (Negative); Urine Urobilinogen Negative (Negative)
[2022-09-20 00:41] LABS: Urine Bacteria 2+ (Absent); Urine Red Blood Cell Absent (Absent); Urine Squamous Epithelial Cell Present (Absent); Urine White Blood Cell 2+(11-20/hpf) (Absent)
[2022-09-20 00:51] LABS: Urine Specific Gravity > 1.060 (1.002-1.030)
[2022-09-20] MEDS: ZOSYN 3.375 GM Q8H per EXTENDED INFUSION IV SCH ×3 (04:45→20:28)
[2022-09-20 06:55] LABS: ABS Eosinophils 0.2 10^3/uL (0.0-0.5); ABS Lymphocytes 1.7 10^3/uL (1.0-4.8); ABS Monocytes 0.5 10^3/uL (0.0-0.9); ABS Neutrophils 3.7 10^3/uL (1.5-7.6); ABS Nucleated RBC 0.01 10^3/ul; Eosinophil % 2.8 %; Hematocrit 33.3 % (35-45); Hemoglobin 11.4 g/dL (11.5-14.3); Lymphocyte % 27.4 %; Mean Corpuscular Hemoglobin 31.6 pg (27-33); Mean Corpuscular Hgb Conc 34.1 g/dL (31-36); Mean Corpuscular Volume 92.8 fL (80-97); Nucleated Red Blood Cells % 0.2 /100 WBC (0.0-0.4); Platelet Count 194 10^3/uL (150-450); Red Blood Count 3.59 10^6/uL (3.63-4.92); Red Cell Distribution Width 13.7 % (12-17); White Blood Count 6.1 10^3/uL (3.8-11.8)
[2022-09-20 07:16] LABS: Calcium 8.8 mg/dL (8.6-10.3); Creatinine, Serum 0.71 mg/dL (0.51-0.95); Potassium 3.3 mmol/L (3.5-5.0); eGFR CKD-EPI 87.5 (>60)
[2022-09-20] MEDS ORDERED: Potassium Chlor 20 meq TAB.ER PO ONE (08:17)
[2022-09-20] MEDS: Timolol 0.5% OPTH.SOL BTL BOTH EYES SCH ×2 (10:20→20:27)
[2022-09-21] MEDS: ZOSYN 3.375 GM Q8H per EXTENDED INFUSION IV SCH ×3 (04:17→21:31)
[2022-09-21 06:11] LABS: ABS Eosinophils 0.1 10^3/uL (0.0-0.5); ABS Lymphocytes 1.6 10^3/uL (1.0-4.8); ABS Monocytes 0.6 10^3/uL (0.0-0.9); ABS Neutrophils 4.3 10^3/uL (1.5-7.6); ABS Nucleated RBC 0.01 10^3/ul; Eosinophil % 2.1 %; Hemoglobin 11.9 g/dL (11.5-14.3); Mean Corpuscular Hemoglobin 32.2 pg (27-33); Mean Platelet Volume 6.9 fL (7.5-11.2); Nucleated Red Blood Cells % 0.1 /100 WBC (0.0-0.4); Platelet Count 190 10^3/uL (150-450); Red Blood Count 3.69 10^6/uL (3.63-4.92); Red Cell Distribution Width 13.6 % (12-17); White Blood Count 6.8 10^3/uL (3.8-11.8)
[2022-09-21 06:28] LABS: Calcium 8.8 mg/dL (8.6-10.3); Creatinine, Serum 0.72 mg/dL (0.51-0.95); Potassium 3.4 mmol/L (3.5-5.0); eGFR CKD-EPI 86.1 (>60)
[2022-09-21] MEDS ORDERED: Potassium Chlor 20 meq TAB.ER PO ONE (08:18)
[2022-09-21] MEDS: Timolol 0.5% OPTH.SOL BTL BOTH EYES SCH ×2 (08:57→21:40)
[2022-09-22] MEDS: ZOSYN 3.375 GM Q8H per EXTENDED INFUSION IV SCH (04:02)
[2022-09-22 06:13] LABS: ABS Eosinophils 0.1 10^3/uL (0.0-0.5); ABS Lymphocytes 1.4 10^3/uL (1.0-4.8); ABS Monocytes 0.6 10^3/uL (0.0-0.9); ABS Nucleated RBC 0.01 10^3/ul; Hematocrit 32.2 % (35-45); Lymphocyte % 23.1 %; Mean Corpuscular Hemoglobin 31.5 pg (27-33); Mean Corpuscular Hgb Conc 34.3 g/dL (31-36); Mean Corpuscular Volume 91.7 fL (80-97); Mean Platelet Volume 6.9 fL (7.5-11.2); Nucleated Red Blood Cells % 0.1 /100 WBC (0.0-0.4); Platelet Count 197 10^3/uL (150-450); Red Blood Count 3.51 10^6/uL (3.63-4.92); Red Cell Distribution Width 13.5 % (12-17); White Blood Count 6.2 10^3/uL (3.8-11.8)
[2022-09-22 06:41] LABS: Calcium 8.7 mg/dL (8.6-10.3); Creatinine, Serum 0.7 mg/dL (0.51-0.95); Potassium 3.8 mmol/L (3.5-5.0)
[2022-09-22] MEDS: GLUCOSAMINE HCL MSM CHONDROITN PO SCH ×2 (09:59→21:48)
[2022-09-22] MEDS: Timolol 0.5% OPTH.SOL BTL BOTH EYES SCH ×2 (10:00→21:48)
[2022-09-22] MEDS: cefTRIAXone 1 gm/50 mL D5W 1 GM/50 ML BAG IV SCH (11:06)
[2022-09-23 06:44] LABS: ABS Eosinophils 0.1 10^3/uL (0.0-0.5); ABS Lymphocytes 1.4 10^3/uL (1.0-4.8); ABS Monocytes 0.5 10^3/uL (0.0-0.9); ABS Neutrophils 3.4 10^3/uL (1.5-7.6); Eosinophil % 2.6 %; Hemoglobin 12.1 g/dL (11.5-14.3); Lymphocyte % 25.7 %; Mean Corpuscular Hemoglobin 31.6 pg (27-33); Mean Corpuscular Hgb Conc 33.6 g/dL (31-36); Mean Corpuscular Volume 93.9 fL (80-97); Platelet Count 223 10^3/uL (150-450); Red Blood Count 3.84 10^6/uL (3.63-4.92); Red Cell Distribution Width 13.7 % (12-17); White Blood Count 5.4 10^3/uL (3.8-11.8)
[2022-09-23 07:16] LABS: Creatinine, Serum 0.78 mg/dL (0.51-0.95); eGFR CKD-EPI 78.2 (>60)
[2022-09-23] MEDS: GLUCOSAMINE HCL MSM CHONDROITN PO SCH ×2 (08:17→21:30)
[2022-09-23] MEDS: Timolol 0.5% OPTH.SOL BTL BOTH EYES SCH ×2 (08:17→21:29)
[2022-09-23] MEDS: cefTRIAXone 1 gm/50 mL D5W 1 GM/50 ML BAG IV SCH (09:46)
[2022-09-24] MEDS: cefTRIAXone 1 gm/50 mL D5W 1 GM/50 ML BAG IV SCH (10:28)
[2022-09-24] MEDS: Timolol 0.5% OPTH.SOL BTL BOTH EYES SCH ×2 (10:33→20:35)
[2022-09-24] MEDS: GLUCOSAMINE HCL MSM CHONDROITN PO SCH ×2 (10:33→20:35)
[2022-09-25] MEDS: cefTRIAXone 1 gm/50 mL D5W 1 GM/50 ML BAG IV SCH (08:42)
[2022-09-25] MEDS: GLUCOSAMINE HCL MSM CHONDROITN PO SCH ×2 (08:43→18:30)
[2022-09-25] MEDS: Timolol 0.5% OPTH.SOL BTL BOTH EYES SCH ×2 (08:46→20:25)
[2022-09-25] MEDS: Calcium Polycarbophil 625mg TB PO SCH ×2 (10:23→20:26)
[2022-09-25 17:21] LABS: Rapid COVID-19 Molecular Undetected (Undetected)
[2022-09-26 06:30] VITALS: BP 141/65
[2022-09-26] MEDS: GLUCOSAMINE HCL MSM CHONDROITN PO SCH (08:40)
[2022-09-26] MEDS: Calcium Polycarbophil 625mg TB PO SCH (08:41)
[2022-09-26] MEDS: Timolol 0.5% OPTH.SOL BTL BOTH EYES SCH (08:42)
== END 2022-09-26 10:43 | DRG 872 ==
LOC: ED 09:38 → EDHOLD 09:38 → SUATTDRO 15:14 → MEDTELE 19:55 → SUATTDRO 09-21 10:04
PROVIDERS: ADMIT Internal Medicine; ATTEND Internal Medicine

== ENCOUNTER 2022-12-26 11:00 | Inpatient (IN) ==
[~2022-12-26 11:00] MED LIST changes: +Buffered Lidocaine 1% SYRIN 1 ml INTRADERM ONE; -Buffered Lidocaine 1% SYRIN* 1 ML/SYRINGE INTRADERM ONE; +Lactated Ringers 1000 ml BAG 1,000 ML IV SCH; +Naloxone 0.4 mg VIAL 0.4 mg/ml 1 ml VIAL IV PRN; +Ondansetron 4 mg VIAL 2 MG/ML 2 ml VIAL IV PRN; +fentaNYL 100 mcg/2 ml 50 MCG/ML VIAL IV PRN; +oxyCODONE/Acetamin 5/325 mg TAB PO PRN
[2022-12-26] MEDS ORDERED: ceFAZolin 2 GM in NS PREMIX 2 GM/100 ML BAG IVPB ONE (11:55)
[2022-12-26 12:02] LABS: Rapid COVID-19 Molecular Undetected (Undetected)
[2022-12-26] MEDS ORDERED: Propofol 10 MG/ML 20 ML BTL ONE ×4 (12:22→16:55)
[2022-12-26] MEDS ORDERED: Midazolam 2 mg/2 ml VIAL 1 mg/ml 2 ml VIAL (2 mg) ONE (12:22)
[2022-12-26] MEDS ORDERED: ROPIVACAINE 5 MG/ML 30 ML BTL (0.5%) ONE (13:13)
[2022-12-26] MEDS ORDERED: Ropivacaine 5 MG/ML 20 ML VIAL 0.5% (100 MG) ONE (14:25)
[2022-12-26] MEDS ORDERED: Ketamine HCL 50 mg/ml 10 ml VIAL (500 MG) ONE (14:58)
[2022-12-26] MEDS ORDERED: Glycopyrrolate IV 0.2 MG/ML 1 ML VIAL ONE (14:58)
[2022-12-26] MEDS ORDERED: Ondansetron 4 mg VIAL 2 MG/ML 2 ml VIAL IV PRN (17:15)
[2022-12-26] MEDS ORDERED: Ondansetron ODT 4 mg TAB 4 MG TAB PO PRN (17:15)
[2022-12-26] MEDS ORDERED: Lactulose 30 ml UDC PO PRN (17:15)
[2022-12-26] MEDS ORDERED: Magnesium Hydroxide LIQ 30 ML UDC PO PRN (17:15)
[2022-12-26] MEDS ORDERED: Morphine 2 MG/ML SYRINGE IV PRN (17:15)
[2022-12-26] MEDS ORDERED: oxyCODONE/Acetamin 5/325 mg TAB ONE (17:33)
[2022-12-26] MEDS ORDERED: hydrALAZINE 20 mg/ml 1 ML Vial IV ONE ×2 (18:14→19:44)
[2022-12-26] MEDS: hydrALAZINE 20 mg/ml 1 ML Vial IV IV SLOW PU PRN ×3 (18:16→19:46)
[2022-12-26] MEDS ORDERED: Ondansetron 4 mg VIAL 2 MG/ML 2 ml VIAL ONE (19:23)
[2022-12-26] MEDS: Lactated Ringers 1000 ml BAG 1,000 ML IV SCH (20:48)
[2022-12-26] MEDS: ceFAZolin 1 GM ADVAN 1 GM in NS 0.9% 50 ML 50 ML IVPB SCH (22:52)
[2022-12-26] MEDS ORDERED: Scopolamine 1 mg/72hr PATCH TRANSDERM SCH (23:00)
[2022-12-26] MEDS: Magnesium Hydroxide LIQ 30 ML UDC PO SCH (23:08)
[2022-12-27] MEDS ORDERED: Albuterol HFA INHALER 8 gm MDI INH PRN (02:24)
[2022-12-27] MEDS: LIGHT MINERAL OIL MINERAL OIL OPHTHALMIC PRN ×2 (02:46→05:27)
[2022-12-27] MEDS: ceFAZolin 1 GM ADVAN 1 GM in NS 0.9% 50 ML 50 ML IVPB SCH ×2 (07:56→18:08)
[2022-12-27] MEDS: Lactated Ringers 1000 ml BAG 1,000 ML IV SCH (08:00)
[2022-12-27 08:07] LABS: Hematocrit 32.6 % (35-45); Hemoglobin 11.2 g/dL (11.5-14.3); Mean Platelet Volume 7.3 fL (7.5-11.2); Platelet Count 212 10^3/uL (150-450)
[2022-12-27] MEDS: Timolol 0.5% OPTH.SOL BTL RIGHT EYE SCH ×2 (08:13→21:26)
[2022-12-27] MEDS: Vitamin THERAPEUTIC TAB PO SCH (08:15)
[2022-12-27] MEDS: Magnesium Hydroxide LIQ 30 ML UDC PO SCH ×2 (08:16→21:29)
[2022-12-27 08:22] LABS: Calcium 8.9 mg/dL (8.6-10.3); Creatinine, Serum 0.73 mg/dL (0.51-0.95); Potassium 3.8 mmol/L (3.5-5.0); eGFR CKD-EPI 84.1 (>60)
[2022-12-28 08:12] LABS: Hemoglobin 10.5 g/dL (11.5-14.3); Mean Platelet Volume 7.5 fL (7.5-11.2); Platelet Count 174 10^3/uL (150-450)
[2022-12-28] MEDS: Vitamin THERAPEUTIC TAB PO SCH (09:10)
[2022-12-28] MEDS: Magnesium Hydroxide LIQ 30 ML UDC PO SCH ×2 (09:10→21:03)
[2022-12-28] MEDS: Timolol 0.5% OPTH.SOL BTL RIGHT EYE SCH ×2 (09:17→21:03)
[2022-12-29 05:54] LABS: Hematocrit 27.9 % (35-45); Hemoglobin 9.7 g/dL (11.5-14.3); Mean Platelet Volume 7.2 fL (7.5-11.2); Platelet Count 163 10^3/uL (150-450)
[2022-12-29] MEDS: Magnesium Hydroxide LIQ 30 ML UDC PO SCH (08:03)
[2022-12-29] MEDS: Timolol 0.5% OPTH.SOL BTL RIGHT EYE SCH (08:04)
[2022-12-29] MEDS: Vitamin THERAPEUTIC TAB PO SCH (08:04)
[2022-12-29 10:16] VITALS: BP 110/57
[2022-12-29 10:52] LABS: Rapid COVID-19 Molecular Undetected (Undetected)
== END 2022-12-29 12:25 | DRG 470 ==
LOC: SSU 11:00 → OR 11:00
PROVIDERS: ADMIT Orthopaedic Surgery Adult Reconstructive Orthopaedic Surgery; ATTEND Orthopaedic Surgery Adult Reconstructive Orthopaedic Surgery

== ENCOUNTER 2023-06-24 01:16 | Observation (INO) ==
[2023-06-24 02:06] LABS: ABS Basophils 0.1 10^3/uL (0.0-0.1); ABS Lymphocytes 0.9 10^3/uL (1.0-4.8); ABS Monocytes 0.8 10^3/uL (0.0-0.9); ABS Neutrophils 9.5 10^3/uL (1.5-7.6); ABS Nucleated RBC 0.01 10^3/ul; Eosinophil % 0.4 %; Hematocrit 38.5 % (35-45); Hemoglobin 12.9 g/dL (11.5-14.3); Lymphocyte % 7.9 %; Mean Corpuscular Hemoglobin 30.9 pg (27-33); Mean Corpuscular Hgb Conc 33.6 g/dL (31-36); Mean Platelet Volume 6.9 fL (7.5-11.2); Nucleated Red Blood Cells % 0.1 %/100WBC (0.0-0.8); Platelet Count 245 10^3/uL (150-450); Red Blood Count 4.18 10^6/uL (3.63-4.92); Red Cell Distribution Width 15.4 % (12-17); White Blood Count 11.4 10^3/uL (3.8-11.8)
[2023-06-24 02:26] LABS: Albumin 3.8 g/dL (3.2-5.2); Albumin/Globulin Ratio 1.1 (1-3); Creatinine, Serum 0.72 mg/dL (0.51-0.95); Globulin 3.6 g/dL (2-4); Magnesium 1.8 mg/dL (1.9-2.7); Potassium 3.4 mmol/L (3.5-5.0); Total Bilirubin 0.8 mg/dL (0.2-1.0); Total Protein 7.4 g/dL (6.4-8.9); eGFR CKD-EPI 85.5 (>60)
[2023-06-24] MEDS: Potassium Chlor 20 meq TAB.ER PO ONE (03:56)
[2023-06-24 12:59] LABS: Urine Color Yellow
[2023-06-24 13:00] LABS: Urine Bilirubin Negative (Negative); Urine Blood Trace (Intact) (Negative); Urine Ketones Negative (Negative); Urine Nitrite Positive (Negative); Urine Protein 1+ (30 mg/dL) (Negative); Urine Urobilinogen 0.2 (Negative) (Negative); Urine pH 5.5 (5.0-9.0)
[2023-06-24 13:01] LABS: Urine Appearance Cloudy
[2023-06-24 13:10] LABS: Urine Bacteria 3+ /HPF (Absent); Urine Red Blood Cell 3+(>10/hpf) /HPF (0-Trace); Urine Squamous Epithelial Cell Present /HPF (Absent); Urine White Blood Cell 3+(>20/hpf) /HPF (0-Trace)
[2023-06-24] MEDS: cefTRIAXone 1 gm/50 mL D5W 1 GM/50 ML BAG IV ONE (13:50)
[2023-06-24] MEDS: Lactated Ringers 1000 ml BAG 1,000 ML IV SCH (15:34)
[2023-06-24] MEDS: GLUCOSAMINE CHONDROITIN PO SCH (22:57)
[2023-06-24] MEDS: Timolol 0.5% OPTH.SOL BTL RIGHT EYE SCH (22:57)
[2023-06-25 07:05] LABS: Hematocrit 30.6 % (35-45); Hemoglobin 10.4 g/dL (11.5-14.3); Mean Corpuscular Hemoglobin 31.3 pg (27-33); Mean Corpuscular Hgb Conc 33.9 g/dL (31-36); Mean Corpuscular Volume 92.5 fL (80-97); Mean Platelet Volume 7.2 fL (7.5-11.2); Platelet Count 179 10^3/uL (150-450); Red Blood Count 3.31 10^6/uL (3.63-4.92); Red Cell Distribution Width 15.3 % (12-17); White Blood Count 7.1 10^3/uL (3.8-11.8)
[2023-06-25 07:23] LABS: Iron 34 ug/dL (50-212)
[2023-06-25 07:38] LABS: TSH Ultra Thyroid Stim Horm 1.96 mcIU/mL (0.34-5.60)
[2023-06-25 07:49] LABS: Folate > 20.00 ng/mL (5.90-24.80)
[2023-06-25 07:50] LABS: Vitamin B12 154 pg/mL (180-914)
[2023-06-25 07:53] LABS: Vitamin D Total 25(OH) 19.2 ng/mL (20-50)
[2023-06-25 08:53] LABS: Calcium 8.9 mg/dL (8.6-10.3); Creatinine, Serum 0.7 mg/dL (0.51-0.95); Magnesium 1.7 mg/dL (1.9-2.7); Potassium 3.6 mmol/L (3.5-5.0); eGFR CKD-EPI 88.5 (>60)
[2023-06-25 09:13] LABS: Ferritin 63.7 ng/mL (11-307)
[2023-06-25 09:15] LABS: % Iron Saturation 14 % (15-55); .Transferrin 172 mg/dL (203-362); Total Iron Binding Capacity 241 mcg/dL (250-450); Unsaturated Iron Binding 207 ug/dL
[2023-06-25] MEDS: Potassium Chlor 10 meq TAB PO SCH (10:22)
[2023-06-25] MEDS: Cyanocobalamin INJ 1,000 MCG/ML VIAL 1 ML VIAL IM ONE (10:25)
[2023-06-25] MEDS: Magnesium Sulfate 2 gm BAG 2 GM/50 ML BAG IVPB ONE (10:56)
[2023-06-25] MEDS: Cholecalciferol (VIT D3) 1,000 unit TAB PO SCH (12:31)
[2023-06-25] MEDS: Magnesium Sulfate IV 1GM/100ML 1 GM/100 ML BAG IV ONE (12:31)
[2023-06-25] MEDS ORDERED: cefTRIAXone 1 gm/50 mL D5W 1 GM/50 ML BAG IV SCH (13:00)
[2023-06-25] MEDS: cefTRIAXone 1 gm/50 mL D5W 1 GM/50 ML BAG IV SCH (13:33)
[2023-06-26 07:29] LABS: ABS Eosinophils 0.1 10^3/uL (0.0-0.5); ABS Lymphocytes 1.5 10^3/uL (1.0-4.8); ABS Monocytes 0.6 10^3/uL (0.0-0.9); ABS Neutrophils 3.6 10^3/uL (1.5-7.6); Hemoglobin 10.7 g/dL (11.5-14.3); Lymphocyte % 25.7 %; Mean Corpuscular Hgb Conc 33.5 g/dL (31-36); Mean Corpuscular Volume 92.8 fL (80-97); Mean Platelet Volume 7.3 fL (7.5-11.2); Nucleated Red Blood Cells % 0.1 %/100WBC (0.0-0.8); Platelet Count 184 10^3/uL (150-450); Red Blood Count 3.45 10^6/uL (3.63-4.92); Red Cell Distribution Width 15.3 % (12-17); White Blood Count 5.8 10^3/uL (3.8-11.8)
[2023-06-26 07:44] LABS: Calcium 8.6 mg/dL (8.6-10.3); Creatinine, Serum 0.65 mg/dL (0.51-0.95); Potassium 3.7 mmol/L (3.5-5.0); eGFR CKD-EPI 90.1 (>60)
[2023-06-26] MEDS: Cyanocobalamin INJ 1,000 MCG/ML VIAL 1 ML VIAL IM ONE (10:29)
[2023-06-26 14:50] VITALS: BP 136/72
[2023-06-26] MEDS ORDERED: MSM PO SCH (21:00)
[2023-06-27] MEDS ORDERED: METHYLSULFONYLMETHANE 1000 MG PO SCH (09:00)
== END 2023-06-26 15:36 | disposition short-term general hospital (02) ==
LOC: ED 01:16 → EDHOLD 01:16 → MED 16:04
PROVIDERS: ADMIT Student in an Organized Health Care Education/Training Program; ATTEND Internal Medicine

== ENCOUNTER 2023-06-26 15:50 | Inpatient (IN) ==
[2023-06-26] MEDS: NON FORMULARY MED (Acetaminophen 650 mg Tablet Extended Release) PO SCH (16:52)
[2023-06-26] MEDS ORDERED: GLUCOSAMINE HCL MSM CHONDROITN PO SCH (21:00)
[2023-06-26] MEDS: Timolol 0.5% OPTH.SOL BTL RIGHT EYE SCH (22:11)
[2023-06-26] MEDS: GLUCOSAMINE CHONDROITIN PO SCH (22:14)
[2023-06-26] MEDS: MSM PO SCH (22:15)
[2023-06-27] MEDS: Multivitamins/Minerals TAB PO SCH (07:55)
[2023-06-27] MEDS: Cholecalciferol (VIT D3) 1,000 unit TAB PO SCH (07:55)
[2023-06-27] MEDS: Potassium Chlor 10 meq TAB PO SCH (07:56)
[2023-06-27] MEDS: GLUCOSAMINE HCL MSM CHONDROITN PO SCH (20:22)
[2023-06-29 06:03] VITALS: BP 143/79
[2023-06-29 11:57] LABS: Rapid COVID-19 Molecular Undetected (Undetected)
== END 2023-06-29 12:15 | DRG 872 ==
LOC: MED 16:04 → SUATTDRO 16:04
PROVIDERS: ADMIT Internal Medicine; ATTEND Hospitalist